=== PATIENT | male | born 1950 | race Caucasian/White ===

== ENCOUNTER → 2020-04-08 15:09 | Outpatient (BNVA) | payer MEDICARE, SELFPAY | PROVIDERS: PCP Internal Medicine; Referring Provider Internal Medicine; Visit Provider Internal Medicine Gastroenterology | DX: K80.20 Calculus of gallbladder without cholecystitis without obstruction (principal); K86.9 Disease of pancreas, unspecified | CPT/HCPCS: Q3014 ==

== ENCOUNTER 2020-06-01 14:07 | Outpatient (REF) | payer MEDICARE, SELFPAY ==
[2020-06-01 14:20] LABS: Glucose Urine UA NEG (NEG); Leukocyte Esterase Urine NEG (NEG); Nitrite Urine NEG (NEG); Specific Gravity - Urine 1.025 (1.005-1.025); Urine Blood NEG (NEG); Urine Ketones NEG (NEG); Urine Protein NEG (NEG-TRACE)
[2020-06-01 14:21] LABS: Appearance Urine CLEAR; Color Urine YELLOW
== END 2020-06-01 14:08 | disposition home or self-care (01) ==
LOC: HO.LNP 14:07
PROVIDERS: Visit Provider Physician Assistant
DX: N39.9 Disorder of urinary system, unspecified (principal)
CPT/HCPCS: 81003

== ENCOUNTER 2020-08-20 06:34 | Outpatient (REF) | payer MEDICARE, SELFPAY ==
[2020-08-20 11:45] LABS: Alanine Aminotransferase 20 U/L (0-40); Albumin Level 4.2 g/dL (3.5-5.0); Alkaline Phosphatase 102 U/L (39-117); Anion Gap 12 (12-20); Aspartate Amino Transferase 23 U/L (5-37); Bilirubin Total 0.7 mg/dL (0.0-1.0); Blood Urea Nitrogen 26 mg/dL (9-16); Calcium 9.5 mg/dL (8.4-10.2); Carbon Dioxide 29 mmol/L (22-29); Chloride 103 mmol/L (96-108); Cholesterol 190 mg/dL; Estimated Glomerular Filt Rate > 60; Glucose Fasting 93 mg/dL (60-99); HDL Cholesterol 54 mg/dL; LDL Cholesterol Calculated 119 mg/dl; Potassium 4.1 mmol/L (3.3-5.1); Sodium 140 mmol/L (135-145); Total Protein 6.7 g/dL (6.5-8.0); Triglycerides 86 mg/dL
[2020-08-20 12:09] LABS: Prostate Specific Antigen 0.35 ng/mL (<0.05-4.0)
== END 2020-08-20 06:35 | disposition home or self-care (01) ==
LOC: HO.HMGCLDS 06:34
PROVIDERS: PCP Internal Medicine; Visit Provider Internal Medicine
DX: E78.9 Disorder of lipoprotein metabolism, unspecified (principal); R97.20 Elevated prostate specific antigen [PSA]
CPT/HCPCS: 36415; 80053; 80061; 84153

== ENCOUNTER 2020-10-29 16:27 | Outpatient (REF) | payer MEDICARE, SELFPAY | END 2020-10-29 16:28 | disposition home or self-care (01) | LOC: HO.LNP 16:27 | PROVIDERS: Visit Provider Hospitalist | DX: R30.0 Dysuria (principal) | CPT/HCPCS: 87086; 87088; 87186 ==

== ENCOUNTER 2021-01-30 08:31 | Outpatient (REF) | payer MEDICARE, SELFPAY ==
[2021-01-30 11:26] LABS: Alanine Aminotransferase 13 U/L (0-40); Albumin Level 3.9 g/dL (3.5-5.0); Alkaline Phosphatase 94 U/L (39-117); Aspartate Amino Transferase 15 U/L (5-37); Bilirubin Direct 0.2 mg/dL (0.0-0.5); Bilirubin Total 0.5 mg/dL (0.0-1.0); Cholesterol 171 mg/dL; HDL Cholesterol 43 mg/dL; LDL Cholesterol Calculated 112 mg/dl; Total Protein 6.2 g/dL (6.5-8.0); Triglycerides 83 mg/dL
== END 2021-01-30 08:32 | disposition home or self-care (01) ==
LOC: HO.HMGCLDS 08:31
PROVIDERS: PCP Internal Medicine; Visit Provider Internal Medicine
DX: E78.9 Disorder of lipoprotein metabolism, unspecified (principal)
CPT/HCPCS: 36415; 80061; 80076

== ENCOUNTER 2021-03-03 15:24 | Outpatient (REF) | payer MEDICARE, SELFPAY ==
--- NOTE | ~2021-03-03 | CT_ITS ---
EXAMINATION: CT HEAD WITHOUT CONTRAST CLINICAL INFORMATION: Convulsions. COMPARISON: None. TECHNIQUE: Contiguous axial imaging was performed from the skull base to vertex without intravenous contrast. This CT examination was performed using dose optimization techniques as appropriate, variously including the following: * Automated exposure control * Adjustment of mA and/or kV according to patient size (this includes techniques or standardized protocols for targeted exams where dose is matched to indication/reason for exam; i.e. extremities or head) Use of iterative reconstruction technique DLP: 847 mGy-cm. FINDINGS: There is no evidence of acute intracranial hemorrhage or territorial infarction. No abnormal mass effect or midline shift is seen. Schmitt to white matter differentiation is well preserved. No extra-axial fluid collections are identified. No hydrocephalus. Proportional prominence of the ventricles and sulcal spaces is consistent with mild volume loss. Patchy periventricular and deep white matter hypoattenuation is consistent with mild small vessel ischemic changes. The osseous structures and soft tissues are normal. The mastoid air cells and visualized portions of the paranasal sinuses are well aerated. CT/CT head/brain wo con IMPRESSION: No acute intracranial pathology. Mild volume loss with small vessel ischemic change.
== END 2021-03-03 15:25 | disposition home or self-care (01) ==
LOC: HO.CT 15:24
PROVIDERS: Visit Provider Internal Medicine
DX: R56.9 Unspecified convulsions (principal)
CPT/HCPCS: 70450

== ENCOUNTER 2021-04-01 16:48 | Outpatient (REF) | payer MEDICARE, SELFPAY ==
[2021-04-01 16:52] LABS: Appearance Urine HAZY; Color Urine YELLOW; Glucose Urine UA NEG (NEG); Leukocyte Esterase Urine TRACE (NEG); Nitrite Urine NEG (NEG); PH 6.5 (5.0-8.0); Specific Gravity - Urine 1.025 (1.005-1.025); UACC Culture Trigger YES; Urine Blood 3+ (NEG); Urine Ketones NEG (NEG); Urine Protein 3+ MG/DL (NEG-TRACE)
[2021-04-01 17:02] LABS: Bacteria Urine 1+ /LPF; RBC Urine TNTC /HPF (0)
[2021-04-01 17:03] LABS: WBC Urine 0-2 /HPF (0-4)
== END 2021-04-01 16:49 | disposition home or self-care (01) ==
LOC: HO.LNP 16:48
PROVIDERS: Visit Provider Physician Assistant Medical
DX: R30.0 Dysuria (principal)
CPT/HCPCS: 81001; 87086

== ENCOUNTER 2021-07-31 08:32 | Outpatient (REF) | payer MEDICARE, SELFPAY ==
[2021-07-31 11:36] LABS: Alanine Aminotransferase 14 U/L (0-40); Alkaline Phosphatase 97 U/L (39-117); Anion Gap 11 (12-20); Aspartate Amino Transferase 16 U/L (5-37); Bilirubin Total 0.5 mg/dL (0.0-1.0); Blood Urea Nitrogen 19 mg/dL (9-16); Calcium 9.7 mg/dL (8.4-10.2); Carbon Dioxide 27 mmol/L (22-29); Chloride 104 mmol/L (96-108); Cholesterol 189 mg/dL; Estimated Glomerular Filt Rate > 60; Glucose Fasting 101 mg/dL (60-99); HDL Cholesterol 51 mg/dL; LDL Cholesterol Calculated 121 mg/dl; Potassium 4.4 mmol/L (3.3-5.1); Sodium 138 mmol/L (135-145); Total Protein 6.4 g/dL (6.5-8.0); Triglycerides 89 mg/dL
[2021-07-31 12:03] LABS: Prostate Specific Antigen < 0.05 ng/mL (<0.05-4.0)
== END 2021-07-31 08:33 | disposition home or self-care (01) ==
LOC: HO.HMGCLDS 08:32
PROVIDERS: Visit Provider Internal Medicine
DX: E78.9 Disorder of lipoprotein metabolism, unspecified (principal); R97.20 Elevated prostate specific antigen [PSA]; Z12.5 Encounter for screening for malignant neoplasm of prostate
CPT/HCPCS: 36415; 80053; 80061; 84153

== ENCOUNTER 2021-11-05 10:28 | Day surgery (SDC) | payer MEDICARE, SELFPAY ==
--- NOTE | 2021-11-04 08:51 | HO.ANESPROP2 ---
Documented by User: Dafne Billingsley NP 11/04/21 08:52 HPI - Anesthesia Eval Consult details Narrative: 71yo M for Colonoscopy PMFSH Active Problems Active Problems: All Active Problems (Updated 09/29/21 @ 09:31 by Chele Lawton MD) Urinary tract infection (Acute) Encounter for general adult medical examination with abnormal findings (Acute) Right leg swelling (Acute) Peripheral vascular disease of extremity (Acute) Hx of prostatic malignancy (Acute) New onset seizure (Acute) Dysuria (Acute) Urinary tract disease (Acute) Lipid disorder (Acute) Gall stones (Acute) Elevated PSA (Acute) Renal calculus, bilateral (Acute) Bilateral renal cysts (Acute) Pancreatic lesion (Acute) Past Medical History Medical History Bilateral renal cysts Elevated PSA Gall stones Lipid disorder Pancreatic lesion Renal calculus, bilateral Family History Family History Father Diabetes mellitus Mother No problems noted. Surgical History Surgical History History of inguinal hernia repair, bilateral Hx of colonoscopy Social History Social History Household Members: Spouse Housing: House Alcohol intake: current Alcohol intake frequency: a few times a month Alcohol type: wine Patient Tobacco Use Status: Former Tobacco user Tobacco use type: Cigarette Years Smoked: 11 years Are you DNR?: No Advance Directives: No Advance Directives Information Provided: Yes Nutrition Risks: No Nutritional Risk Current occupational status: employed Current occupation: [employer] Cognitive needs: No Hearing needs: No Vision needs: No Meds Allergies Allergy/AdvReac Type Severity Reaction Status Date / Time oxycodone [From OxyContin] Allergy Unknown Hallucinati Verified 10/19/21 09:12 ons Home Medications Medication Instructions Recorded Confirmed Last Taken Type cetirizine 10 mg tablet (Zyrtec) 5 mg PO DAILY PRN 03/03/20 08/10/21 Unknown History fluticasone furoate 50 inhalation 03/03/20 08/10/21 Unknown History mcg/actuation blister powder for inhalation zoggaqqbeiku-nhr-fsqyr acid-vit 1 tab PO DAILY 03/03/20 08/10/21 Unknown History K-lycop 400 mcg-20 mcg-370 mcg tablet (Men's 50 Plus Multivitamin) turmeric root extract 500 mg 500 mg PO DAILY 03/03/20 08/10/21 Unknown History capsule cholecalciferol (vitamin D3) 25 25 mcg PO DAILY 08/28/20 08/10/21 Unknown History mcg (1,000 unit) capsule Exam Exam Date and Time: November 04, 2021 0851 Pertinent Lab Results Pertinent Lab Results: Laboratory Tests 07/31/21 08:40 Sodium 138 Potassium 4.4 Chloride 104 Carbon Dioxide 27 BUN 19 H Creatinine 1.09 Assessment and Plan Assessment Anesthesia Assessment: Chart Reviewed Documented by User: Nadeem Briscoe MD 11/05/21 10:53 REPLACED BY [facility] Past Medical History Medical History Bilateral renal cysts Elevated PSA Gall stones Lipid disorder Pancreatic lesion Renal calculus, bilateral Family History Family History Father Diabetes mellitus Mother No problems noted. Family history of problems with anesthesia: No Surgical History Surgical History History of inguinal hernia repair, bilateral Hx of colonoscopy History of Problems with Anesthesia: No Social History Social History Household Members: Spouse Housing: House Alcohol intake: current Alcohol intake frequency: a few times a month Alcohol type: wine Patient Tobacco Use Status: Former Tobacco user Tobacco use type: Cigarette Years Smoked: 11 years Are you DNR?: No Advance Directives: No Advance Directives Information Provided: Yes Nutrition Risks: No Nutritional Risk Current occupational status: employed Current occupation: [employer] Cognitive needs: No Hearing needs: No Vision needs: No Meds Allergies Allergy/AdvReac Type Severity Reaction Status Date / Time oxycodone [From OxyContin] Allergy Unknown Hallucinati Verified 10/19/21 09:12 ons Home Medications Medication Instructions Recorded Confirmed Last Taken Type cetirizine 10 mg tablet (Zyrtec) 5 mg PO DAILY PRN 03/03/20 08/10/21 Unknown History fluticasone furoate 50 inhalation 03/03/20 08/10/21 Unknown History mcg/actuation blister powder for inhalation cisnadjnbbic-qlk-anmqs acid-vit 1 tab PO DAILY 03/03/20 08/10/21 Unknown History K-lycop 400 mcg-20 mcg-370 mcg tablet (Men's 50 Plus Multivitamin) turmeric root extract 500 mg 500 mg PO DAILY 03/03/20 08/10/21 Unknown History capsule cholecalciferol (vitamin D3) 25 25 mcg PO DAILY 08/28/20 08/10/21 Unknown History mcg (1,000 unit) capsule Exam Airway Mallampati Class: II TM Dist: >3cm Neck ROM: Full Assessment and Plan Assessment Anesthesia Assessment: Anesthesia Plan Discussed Final Anesthetic Review Family History of Problems with Anesthesia: No History of Problems with Anesthesia: No NPO: Yes ASA Class: II Final Preanesthetic Review: No Changes in Pt Med Stat, Meds/Allgs Chart Reviewed, Consent Obtained/Reviewed and Anes Risks/Benef Reviewed Patient Risk: Low Procedure Risk: Low Anesthetic Plan Anesthetic Plan: MAC: Disposition: Standard PACU
[2021-11-05] VITALS (7 sets, daily range): BP systolic 118–154; BP diastolic 55–79; PULSE 48–59; RESP 18; TEMP 36.4–36.6; O2SAT 97–100; BMI 27.6
[2021-11-05] MEDS: Lactated Ringers 1,000 ML 100 ML IVCONT (11:08)
--- NOTE | 2021-11-05 12:37 | PM.OP ---
Brief Operative Note Date of Service: 11/05/21 Pre-op diagnosis: Rectal bleeding Post-op diagnosis: other (Radiation-telangiectasias in rectum, Colon polyp) Procedure: Colonoscopy to the cecum with cold snare polypectomy Surgeon: Naveed Arce Anesthesia: MAC Was an Irrigator used for this Procedure?: No Estimated blood loss (mL): 2.0 Pathology: other (A. Colon polyp at 40cm) Condition: stable Disposition: PACU
--- NOTE | 2021-11-05 13:37 | OP_ITS ---
SURGEON: Naveed Arce MD INDICATIONS: The patient presents for evaluation of personal history of a tubular adenoma of the colon and hematochezia. Full consent has been obtained from him for this, including risks of bleeding and perforation. PREOPERATIVE DIAGNOSIS: POSTOPERATIVE DIAGNOSIS: PROCEDURE PERFORMED: Colonoscopy to the cecum with cold snare polypectomy. ESTIMATED BLOOD LOSS: COMPLICATIONS: ANESTHESIA: Monitored anesthesia care. ASSISTANTS: SPECIMENS: PREOPERATIVE DIAGNOSES: Rectal bleeding and personal history of a tubular adenoma of the colon. 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 DESCRIPTION OF PROCEDURE: The patient was placed in the left lateral decubitus position. The digital rectal exam revealed no abnormalities. The Olympus video pediatric colonoscope was entered into the rectum and advanced easily to the cecum. Once in the cecum, I did identify normal-appearing cecal pouch with appendiceal orifice and a normal-appearing ileocecal valve. The entire cecum and ileocecal valve appeared normal. There was transillumination of light deep in the right lower quadrant. The scope was slowly withdrawn assessing all mucosal surfaces carefully. Preparation was excellent. At 40 cm was an approximately 6 mm polyp, which was removed by cold snare polypectomy and recovered by suction. The polypectomy site appeared clean, without any sign of residual polyp nor any significant bleeding. His anastomosis from his previous diverticulitis surgery appeared normal at approximately 10-12 cm. There were some scattered diverticula proximal to this. I did not visualize any sign of colitis nor angiodysplasia. In the rectum were multiple telangiectasias consistent with previous radiation treatments, although none were bleeding. I could not retroflex due to some poor distensibility of the rectum probably in relation to his previous surgery as well as maybe the radiation treatments itself. However, I did get a good look in the forward viewing position and no polyps or other abnormalities were seen besides the telangiectasias and some hemorrhoids. The scope was withdrawn from the patient. He tolerated the procedure well and was returned to the recovery area in stable condition. IMPRESSION: 1. Colon polyp. 2. 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 3. Mild diverticulosis proximal to the anastomosis. 4. Internal hemorrhoids. PLAN: The results of the pathology will be checked. At this point, he reports his bleeding is quite minimal and infrequent. As such, this will be observed. If he begins having more bleeding from the rectal telangiectasias, then we would consider things such as treatment with argon plasma coagulation or topical treatment with something such as mesalamine or hydrocortisone. If things remain stable he will otherwise see me on a p.r.n. basis. He should theoretically have another colonoscopy in 5 years. He was also given instructions to follow up with me in 1 year in regard to his known pancreatic cyst and need for follow up imaging. This has all been discussed with his . MD BOB Patel/CEE / [phone] MTDD
== END 2021-11-05 14:25 | disposition home or self-care (01) ==
PROVIDERS: PCP Internal Medicine; Visit Provider Internal Medicine
PROC: 0DJD8ZZ Inspection of Lower Intestinal Tract, Via Natural or Artificial Opening Endoscopic (ICD-10-PCS; CPT 45378; principal; 2021-11-05 11:40)
DX: K62.5 Hemorrhage of anus and rectum (principal); Z86.010 Personal history of colon polyps; D12.5 Benign neoplasm of sigmoid colon; K57.30 Diverticulosis of large intestine without perforation or abscess without bleeding; Z87.19 Personal history of other diseases of the digestive system; K64.8 Other hemorrhoids; K86.2 Cyst of pancreas; K80.20 Calculus of gallbladder without cholecystitis without obstruction; K62.7 Radiation proctitis; Y84.2 Radiological procedure and radiotherapy as the cause of abnormal reaction of the patient, or of later complication, without mention of misadventure at the time of the procedure; Z92.3 Personal history of irradiation; Z98.0 Intestinal bypass and anastomosis status; Z85.46 Personal history of malignant neoplasm of prostate; E78.5 Hyperlipidemia, unspecified; Z87.891 Personal history of nicotine dependence
CPT/HCPCS: 45385; 88305

== ENCOUNTER → 2021-11-09 08:59 | Outpatient (BNVA) | payer MEDICARE, SELFPAY | PROVIDERS: PCP Internal Medicine; Visit Provider Surgery Vascular Surgery | DX: I83.11 Varicose veins of right lower extremity with inflammation (principal) | CPT/HCPCS: 99202 ==

== ENCOUNTER 2022-01-05 10:32 | Outpatient (REF) | payer MEDICARE, SELFPAY ==
--- NOTE | ~2022-01-05 | US_ITS ---
EXAMINATION: US LOWER EXTREMITY VENOUS (REFLUX EXAM), BILATERAL CLINICAL INDICATION: This is a 71-year-old male with venous insufficiency. Varicose veins. Varicose veins of the right lower extremity with inflammation. COMPARISON: None. TECHNIQUE: Color flow triplex imaging and compression Doppler was performed to evaluate both the deep and the superficial systems bilaterally. To evaluate the superficial system, the examination was performed in the upright position. Color-flow Doppler ultrasound and compression ultrasound were utilized. In addition, maneuvers were utilized to demonstrate reflux. FINDINGS: 1. DEEP VENOUS ULTRASOUND OF THE RIGHT LOWER EXTREMITY: Common Femoral Vein: Compressible, normal respiratory variation and augmented flow. Femoral vein: Compressible, normal color flow and augmentation. Popliteal Vein: Compressible, normal augmentation. Deep Reflux: There is no evidence of reflux in the deep system in either the common femoral vein or the popliteal vein. There is no evidence of a Starkey's cyst. 2. SUPERFICIAL ULTRASOUND WITH DOPPLER OF RIGHT LOWER EXTREMITY: GREAT SAPHENOUS VEIN: Saphenofemoral Junction: 0.7 cm. There is no reflux. Mid Thigh: 0.3 cm. There is no reflux. Above Knee: 0.2 cm. The reflux time is 1736 ms. Below Knee: 0.3 cm. There is no reflux. Mid Calf: 0.2 cm. There is no reflux. Ankle: 0.2 cm. There is no reflux. GSV REFLUX: There is isolated reflux surrounding the knee but not at the saphenofemoral junction DUPLICATED GREAT SAPHENOUS VEIN: There is a 0.3 cm duplicated lateral great saphenous vein without reflux. SMALL SAPHENOUS VEIN: Proximal: 0.2 cm Distal: 0.2 cm SSV REFLUX: No evidence of reflux. VEIN OF GIACOMINI: None Imaged. PERFORATORS: There are 0.2 cm proximal calf perforators without reflux. VARICOSITIES: There are 0.6 cm proximal thigh varicose veins without reflux. There are 0.2 cm varicose veins at the knee and the proximal calf, respectively, with greater than 2 seconds of reflux. 3. DEEP VENOUS ULTRASOUND OF THE LEFT LOWER EXTREMITY: Common Femoral Vein: Compressible, normal respiratory variation and augmented flow. Femoral Vein: Compressible, normal color flow and augmentation. Popliteal Vein: Compressible, normal augmentation. Deep Reflux: There is no evidence of reflux in the deep system in either the common femoral vein or the popliteal vein. There is no evidence of a Starkey's cyst. 4. SUPERFICIAL ULTRASOUND WITH DOPPLER OF LEFT LOWER EXTREMITY: GREAT SAPHENOUS VEIN: Saphenofemoral Junction: 0.7 cm. There is no reflux. Mid Thigh: 0.3 cm. There is no reflux. Above Knee: 0.3 cm. There is no reflux. Below Knee: 0.2 cm. The reflux time is 604 ms. Mid Calf: 0.2 cm. There is no reflux. Ankle: 0.2 cm. There is no reflux. GSV REFLUX: There is isolated reflux below the knee. DUPLICATED GREAT SAPHENOUS VEIN: There is a 0.4 cm duplicated medial great saphenous vein without reflux. SMALL SAPHENOUS VEIN: Proximal: 0.2 cm Distal: 0.2 cm SSV REFLUX: No evidence of reflux. VEIN OF GIACOMINI: None Imaged. 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 VARICOSITIES: None Imaged US/US venous duplex LE BI IMPRESSION: 1. There is a patent right great saphenous vein without evidence of reflux at the saphenofemoral junction. Isolated reflux is seen near the knee. 2. There is a patent right small saphenous vein without evidence of reflux. 3. There are varicose veins at the right knee in the proximal calf measuring 0.2 cm with greater than 2 seconds of reflux. 4. There is a patent left great saphenous vein without evidence of saphenous femoral junction reflux. 5. There is a patent left small saphenous vein without evidence of reflux at the junction. 6. No left-sided varicose veins are seen.
== END 2022-01-05 10:33 | disposition home or self-care (01) ==
LOC: HO.US 10:32
PROVIDERS: Visit Provider Surgery Vascular Surgery
DX: I83.11 Varicose veins of right lower extremity with inflammation (principal)
CPT/HCPCS: 93970

== ENCOUNTER → 2022-01-11 09:01 | Outpatient (BNVA) | payer MEDICARE, SELFPAY | PROVIDERS: PCP Internal Medicine; Visit Provider Surgery Vascular Surgery | DX: I83.11 Varicose veins of right lower extremity with inflammation (principal) | CPT/HCPCS: 99212 ==

== ENCOUNTER 2022-01-29 08:24 | Outpatient (REF) | payer MEDICARE, SELFPAY ==
[2022-01-29 12:12] LABS: Alanine Aminotransferase 13 U/L (0-40); Albumin Level 4.2 g/dL (3.5-5.0); Alkaline Phosphatase 110 U/L (39-117); Anion Gap 15 (12-20); Aspartate Amino Transferase 17 U/L (5-37); Bilirubin Total 0.5 mg/dL (0.0-1.0); Blood Urea Nitrogen 20 mg/dL (9-16); Calcium 9.4 mg/dL (8.4-10.2); Carbon Dioxide 26 mmol/L (22-29); Chloride 103 mmol/L (96-108); Cholesterol 174 mg/dL; Estimated Glomerular Filt Rate > 60; Glucose Fasting 98 mg/dL (60-99); HDL Cholesterol 48 mg/dL; LDL Cholesterol Calculated 112 mg/dl; Potassium 4.4 mmol/L (3.3-5.1); Sodium 140 mmol/L (135-145); Total Protein 6.6 g/dL (6.5-8.0); Triglycerides 72 mg/dL
== END 2022-01-29 08:25 | disposition home or self-care (01) ==
LOC: HO.HMGCLDS 08:24
PROVIDERS: PCP Internal Medicine; Visit Provider Internal Medicine
DX: E78.9 Disorder of lipoprotein metabolism, unspecified (principal)
CPT/HCPCS: 36415; 80053; 80061

== ENCOUNTER 2022-02-22 15:39 | Emergency (ER) | payer MEDICARE, SELFPAY ==
[2022-02-22 18:33] VITALS: BP 164/73; PULSE 74; RESP 18; TEMP 37.1; O2SAT 95; BMI 27.3
== END 2022-02-22 21:10 | disposition left against medical advice (07) ==
PROVIDERS: Emergency Provider Emergency Medicine; PCP Internal Medicine
DX: R10.30 Lower abdominal pain, unspecified (principal)
CPT/HCPCS: 99281; 99282

== ENCOUNTER 2022-05-14 13:37 | Outpatient (REF) | payer MEDICARE, SELFPAY ==
[2022-05-14 14:26] LABS: Influenza A PCR NEGATIVE (Negative); Influenza B PCR NEGATIVE (Negative); Resp Syncy Virus RNA Qual PCR NEGATIVE (Negative); SARS COV2 PCR INHOUSE NEGATIVE (Negative)
== END 2022-05-14 13:38 | disposition home or self-care (01) ==
LOC: HO.LNP 13:37
PROVIDERS: Visit Provider Physician Assistant Medical
DX: Z20.822 Contact with and (suspected) exposure to COVID-19 (principal); R05.9 Cough, unspecified; J02.9 Acute pharyngitis, unspecified
CPT/HCPCS: 0241U; 87070

== ENCOUNTER → 2022-06-10 08:29 | Outpatient (BNVA) | payer MEDICARE, SELFPAY | PROVIDERS: PCP Internal Medicine; Visit Provider Surgery Vascular Surgery | DX: Z53.09 Procedure and treatment not carried out because of other contraindication (principal); I83.11 Varicose veins of right lower extremity with inflammation | CPT/HCPCS: 36475 ==

== ENCOUNTER 2022-07-30 08:10 | Outpatient (REF) | payer MEDICARE, SELFPAY ==
[2022-07-30 12:37] LABS: Estimated Average Glucose 105 mg/dL; Hemoglobin A1c % 5.3 %
[2022-07-30 12:44] LABS: Alanine Aminotransferase 14 U/L (0-40); Albumin Level 4.2 g/dL (3.5-5.0); Alkaline Phosphatase 105 U/L (39-117); Anion Gap 12 (12-20); Aspartate Amino Transferase 18 U/L (5-37); Bilirubin Total 0.7 mg/dL (0.0-1.0); Blood Urea Nitrogen 21 mg/dL (9-16); Calcium 9.6 mg/dL (8.4-10.2); Carbon Dioxide 28 mmol/L (22-29); Chloride 107 mmol/L (96-108); Estimated Glomerular Filt Rate > 60; Glucose Fasting 98 mg/dL (60-99); Lipase 24 U/L (8-78); Sodium 142 mmol/L (135-145); Total Protein 6.5 g/dL (6.5-8.0)
== END 2022-07-30 08:11 | disposition home or self-care (01) ==
LOC: HO.HMGCLDS 08:10
PROVIDERS: PCP Internal Medicine; Visit Provider Internal Medicine
DX: I73.9 Peripheral vascular disease, unspecified (principal); E78.9 Disorder of lipoprotein metabolism, unspecified; Z83.3 Family history of diabetes mellitus
CPT/HCPCS: 36415; 80053; 83036; 83690

== ENCOUNTER 2023-01-09 14:48 | Outpatient (AMB) | payer MEDICARE, SELFPAY ==
[2023-01-09 15:06] VITALS: BP 130/76; PULSE 50; TEMP 36.9; O2SAT 98; BMI 29.0
--- NOTE | 2023-01-09 15:06 | MHC.OFFWIV ---
Intake Vital Signs 01/09/23 15:06 Height 5 ft 8 in Weight 191 lb BMI 29.0 BP 130/76 Blood Pressure Location Rt brachial Position Sitting Pulse 50 Pulse Source Pulse Oximeter Temp 98.4 F Temp Source Oral Pulse Oximetry (%) 98 Intake Visit Reasons: EP Pain RT wrist Intake Note: patient said just woke up with his wrist in pain. Pain coming from right thumb going up his arm. Patient Tobacco Use Status: Former Tobacco user Allergies oxycodone [From OxyContin] Allergy (Unknown, Verified 01/09/23 15:50) Hallucinations Medication List - Last Reconciled 01/09/23 by Chele Lawton MD atorvastatin 20 mg PO DAILY 90 days calcium carbonate (Antacid (calcium carbonate)) 200 mg PO DAILY cetirizine (Zyrtec) 5 mg PO DAILY PRN coenzyme Q10 (Ultra CoQ10) 75 mg PO DAILY cranberry extract 250 mg PO DAILY fluticasone furoate 50 mcg/actuation inhalation glucosamine-chondroitin 500-400 mg 1 cap PO DAILY magnesium 250 mg PO DAILY mnygyhxg-miy-wyccr-vit K-lycop 400-20-370 mcg (Men's 50 Plus Multivitamin) 1 tab PO DAILY nitrofurantoin monohyd/m-cryst 100 mg 1 cap PO BID tamsulosin 0.4 mg PO DAILY 90 days Do you need a note to return to daycare/school/sports/work: No HPI EP Pain RT wrist HPI Details 72-year-old male presents to the office for a sick visit. He is complaining of pain in the right wrist for the past 3 days. Pain is around the right thumb and on the dorsum of the wrist. Does not recall any fall or injury. Patient is an avid golfer. [facility] Medical History Bilateral renal cysts Elevated PSA Gall stones Lipid disorder Pancreatic lesion Renal calculus, bilateral Surgical History History of inguinal hernia repair, bilateral Hx of colonoscopy Family History Father Diabetes mellitus Mother No problems noted. Social History Household Members: Spouse Housing: House Alcohol intake: current Alcohol intake frequency: a few times a month Alcohol type: wine Patient Tobacco Use Status: Former Tobacco user Tobacco use type: Cigarette Years Smoked: 11 years service: No Current occupational status: employed Current occupation: [employer] Current occupational exposures/hazards: Yes Cognitive needs: No Hearing needs: No Vision needs: No Physical Exam Vital Signs: Last Vital Signs Temp 98.4 F 01/09/23 15:06 Pulse 50 01/09/23 15:06 BP 130/76 01/09/23 15:06 Pulse Ox 98 01/09/23 15:06 BMI result Body Mass Index 29.0 Extrem Other: Right hand: Minimal tenderness over the dorsum of the wrist. Full flexion and extension. Assessment & Plan Assessment & Plan (1) Sprain of wrist, right: Code(s): S63.501A - Unspecified sprain of right wrist, initial encounter Qualifiers: Encounter type: initial encounter Qualified Code(s): S63.501A - Unspecified sprain of right wrist, initial encounter Plan: X-ray images were personally reviewed by me. Splint provided. Meloxicam called in. If symptoms not better to follow-up here. Orders: Orders XR wrist RT min 3V Today S63.501A - Unspecified sprain of right wrist, initial encounter Coding Level of Care Code Est Pt Level 4 (81780) Diagnoses Sprain of right wrist, initial encounter S63.501A Encounter type: initial encounter
== END 2023-01-09 16:26 | disposition home or self-care (01) ==
PROVIDERS: PCP Internal Medicine; Visit Provider Internal Medicine
DX: S63.501A Unspecified sprain of right wrist, initial encounter (principal)
CPT/HCPCS: 99214

== ENCOUNTER 2023-01-09 15:47 | Outpatient (REF) | payer MEDICARE, SELFPAY ==
--- NOTE | ~2023-01-09 | XR_ITS ---
EXAMINATION: XR WRIST, RIGHT CLINICAL INFORMATION: Sprain COMPARISON: None available. TECHNIQUE: 4 views of the right wrist. FINDINGS: The bones and soft tissues are normal. No fracture. Alignment is anatomic with normal joint spaces. No erosions or abnormal soft tissue calcifications. XR/XR wrist RT min 3V IMPRESSION: Normal right wrist.
== END 2023-01-09 15:48 | disposition home or self-care (01) ==
LOC: HO.HMGCX 15:47
PROVIDERS: PCP Internal Medicine; Visit Provider Internal Medicine
DX: S63.501A Unspecified sprain of right wrist, initial encounter (principal); X58.XXXA Exposure to other specified factors, initial encounter; Y93.9 Activity, unspecified; Y92.9 Unspecified place or not applicable; Y99.9 Unspecified external cause status
CPT/HCPCS: 73110

== ENCOUNTER 2023-01-28 08:41 | Outpatient (REF) | payer MEDICARE, SELFPAY ==
[2023-01-28 11:51] LABS: Alanine Aminotransferase 13 U/L (0-40); Albumin Level 4.1 g/dL (3.5-5.0); Alkaline Phosphatase 96 U/L (39-117); Anion Gap 13 (12-20); Aspartate Amino Transferase 19 U/L (5-37); Bilirubin Total 0.5 mg/dL (0.0-1.0); Blood Urea Nitrogen 23 mg/dL (9-16); Calcium 9.8 mg/dL (8.4-10.2); Carbon Dioxide 27 mmol/L (22-29); Chloride 105 mmol/L (96-108); Cholesterol 184 mg/dL (<200); Estimated Glomerular Filt Rate > 60; Glucose Fasting 93 mg/dL (60-99); HDL Cholesterol 52 mg/dL (>40); LDL Cholesterol Calculated 112 mg/dL (<100); Potassium 4.4 mmol/L (3.3-5.1); Sodium 141 mmol/L (135-145); Total Protein 6.7 g/dL (6.5-8.0); Triglycerides 104 mg/dL (<150)
== END 2023-01-28 08:42 | disposition home or self-care (01) ==
LOC: HO.HMGCLDS 08:41
PROVIDERS: PCP Internal Medicine; Visit Provider Internal Medicine
DX: R73.01 Impaired fasting glucose (principal); E78.9 Disorder of lipoprotein metabolism, unspecified
CPT/HCPCS: 36415; 80053; 80061

== ENCOUNTER 2023-02-08 08:56 | Outpatient (AMB) | payer MEDICARE, SELFPAY ==
[2023-02-08 08:59] VITALS: BP 118/60; PULSE 55; O2SAT 97; BMI 28.7
--- NOTE | 2023-02-08 08:59 | MHC.PC.OV ---
Vital Signs 02/08/23 08:59 Height 5 ft 8 in Weight 189 lb BMI 28.7 BP 118/60 Blood Pressure Location Rt brachial Position Sitting Pulse 55 Pulse Source Pulse Oximeter Pulse Oximetry (%) 97 Oxygen Delivery Method Room Air Intake Visit Reasons: Annual PE Allergies oxycodone [From OxyContin] Allergy (Unknown, Verified 02/08/23 09:01) Hallucinations Medication List - Last Reconciled 02/08/23 by Sanjay Cole MD atorvastatin 20 mg PO DAILY 90 days calcium carbonate (Antacid (calcium carbonate)) 200 mg PO DAILY cetirizine (Zyrtec) 5 mg PO DAILY PRN coenzyme Q10 (Ultra CoQ10) 75 mg PO DAILY cranberry extract 250 mg PO DAILY fluticasone furoate 50 mcg/actuation inhalation glucosamine-chondroitin 500-400 mg 1 cap PO DAILY magnesium 250 mg PO DAILY meloxicam 15 mg PO DAILY fnimmfyc-gym-jerod-vit K-lycop 400-20-370 mcg (Men's 50 Plus Multivitamin) 1 tab PO DAILY nitrofurantoin monohyd/m-cryst 100 mg 1 cap PO BID tamsulosin 0.4 mg PO DAILY 90 days Tobacco use date assessed: 02/08/23 Fall risk assessment: No Falls in past year Last assessed Fall Risk: 02/08/23 Dental Screening Dental Screen Date: 02/08/23 Did you have a dental visit in the last 12 months?: Yes Did you have a dental problem in the last 6 months where you did not have access to dental care?: No Was dental information given to patient?: Patient has dentist HPI Annual PE HPI Details Patient is a 71-year-old male came in today for physical examination. Patient had colonoscopy last year through Dr. Grier Patient have a history of prostatic cancer and is under care off [facility] Urologist Dr. Guerrero He recently had cystoscopy done which was fine as well patient He does have frequency of urination which is chronic however there is no urine incontinence Only medication through our office is lovastatin 20 mg for lipid control. Labs done recently this month reviewed with the patient New set of lab order placed to be done in 6 months Patient has been having swelling of his right leg, on examination today he has 2+ edema to whaley. He has seen vascular specialist but procedure could not be done as the provider could not find his way in. Currently patient is wearing compression stocking which is controlling his symptoms. Swelling is located only in the right leg and is minimal today due to compression stocking Follow-up 6 month physical exam 1 year [facility] Medical History Lipid disorder Gall stones Elevated PSA Renal calculus, bilateral Bilateral renal cysts Pancreatic lesion Surgical History Hx of colonoscopy History of inguinal hernia repair, bilateral Family History Father Diabetes mellitus Mother No problems noted. Social History Household Members: Spouse Housing: House Alcohol intake: current Alcohol intake frequency: a few times a month Alcohol type: wine Patient Tobacco Use Status: Former Tobacco user Tobacco use type: Cigarette Years Smoked: 11 years e-Cigarette/Vaping Use: Never Used service: No Current occupational status: employed Current occupation: [employer] Current occupational exposures/hazards: Yes Cognitive needs: No Hearing needs: No Vision needs: No Questionnaire PHQ-9 Over the last 2 weeks, how often have you been bothered by any of the following problems? 1. Little interest or pleasure in doing things: not at all 2. Feeling down, depressed, or hopeless: not at all 3. Trouble falling or staying asleep, or sleeping too much: not at all 4. Feeling tired or having little energy: not at all 5. Poor appetite or overeating: not at all 6. Feeling bad about yourself - or that you are a failure or have let yourself or your family down: not at all 7. Trouble concentrating on things, such as reading the newspaper or watching television: not at all 8. Moving or speaking so slowly that other people could have noticed. Or the opposite - being so fidgety or restless that you have been moving around a lot more than usual: not at all 9. Thoughts that you would be better off or of hurting yourself in some way: not at all Total score: 0 Depression Screening Interpretation: Negative Depression Screening Done: Yes 79330 - PHQ-9 Billing: Yes Source: Developed by Drs. Naveed L. SweetieTemitope rodriguez Kurt Kroenke and colleagues, with an educational lisa from [employer]. Thrive Questionnaire Date Thrive assessed: 02/08/23 I am a: Patient What is your living situation today?: I have a steady place to live Within the past 12 months, did the food you bought not last and you didn't have the money to get more?: Never true Within the past 12 months, did you worry whether your food would run out before you got money to buy more?: Never true Do you have trouble paying for medicines?: No Do you have trouble getting transportation to medical appointments?: No Do you have trouble paying your heating and electricity bill?: No Do you have trouble taking care of your child, family member or friend?: No Do you have trouble with day-to-day activities such as bathing, preparing meals, shopping, managing finances, etc.?: No Are you currently unemployed and looking for a job?: No Are you interested in more education?: No KARINA-7 AMB Questionnaire KARINA-7 Date KARINA - 7 assessed: 02/08/23 Feeling nervous, anxious, or on edge: 0 = Not at all Not being able to stop or control worryin = Not at all Worrying too much about different things: 0 = Not at all Trouble relaxin = Not at all Being so restless that it is hard to sit still: 0 = Not at all Becoming easily annoyed or irritable: 0 = Not at all Feeling afraid as if something awful might happen: 0 = Not at all Total KARINA-7 score (0-4 normal; 5-9 mild; 10-14 moderate; 15-21 severe): 0 Source: Developed by Drs. Naveed Pitt, Ham Vallejo and colleagues, with an educational lisa from [employer]. Review of Systems Const Denies chills, Denies fever(s) and Denies headache(s) Eyes Denies blurry vision ENT Denies headache(s), Denies nasal discharge, Denies nasal obstruction, Denies odynophagia and Denies sinus pain Card Denies chest pain at rest and Denies chest pain with activity Resp Denies cough and Denies hemoptysis GI Denies diarrhea, Denies odynophagia, Denies vomiting and Denies hematemesis Reports as per HPI Musc Denies abnormal gait Skin/Breast Reports as per HPI Neuro Denies Neuro-related abnormal movements, Denies Abnormal speech present, Denies abnormal gait, Denies headache(s) and Denies Sensory deficit (Neuro) Psych Denies mood swings and Denies paranoia Endo Reports as per HPI Hair/Lymph Reports as per HPI Aller/Immun Reports as per HPI Physical exam (Primary Care) Vital Signs: Last Vital Signs Pulse 55 02/08/23 08:59 BP 118/60 02/08/23 08:59 Pulse Ox 97 02/08/23 08:59 Oxygen Delivery Method Room Air 02/08/23 08:59 BMI result Body Mass Index 28.7 Tobacco/Smoking Status: Tobacco use Status Tobacco use date assessed 02/08/23 02/08/23 09:03 Patient Tobacco Use Status Former Tobacco user 02/08/23 09:03 Tobacco use type Cigarette 02/08/23 09:03 e-Cigarette/Vaping Use Never Used 02/08/23 09:03 PHQ-9: PHQ-9 Score PHQ-9: Total score 0 02/08/23 09:41 Depression Screening Interpretation: Negative Thrive Assessment: Date of Thrive Assessment Date Thrive assessed 02/08/23 02/08/23 09:41 Const General: cooperative, comfortable and no acute distress Orientation/consciousness: patient oriented x3 HENMT Head: Yes normocephalic and Yes atraumatic Eyes General: appearance normal, both eyes and all related structures Pupils: Equal, round and reactive pupils present EOM: EOMs intact bilaterally Neck Neck: Yes supple and No lymphadenopathy Thyroid: Thyroid normal Lymphatic: no lymphadenopathy noted Chest Breast/axilla palpation: normal palpation of the breasts Resp Effort & Inspection: normal respiratory effort and able to speak in complete sentences Auscultation: clear to auscultation bilaterally Cardio Heart sounds: S1 normal heart sound present and S2 normal heart sound present GI Palpation (GI): Soft to palpation and nontender Auscultation: normal bowel sounds General: Yes no CVA tenderness Back/Spine/Pelvis Back: no CVA tenderness Skin General skin exam: elasticity normal and turgor normal Neuro General: patient oriented x3 and gait normal Cranial nerves: Yes Equal, round and reactive pupils present Speech: No Abnormal speech present Sensory Exam: No Sensory deficit (Neuro) Coordination: tandem gait normal and Romberg test negative Extrem General: Yes normal exam except as noted and No edema Assessment and Plan Assessment & Plan (1) Encounter for general adult medical examination with abnormal findings: Code(s): Z00.01 - Encounter for general adult medical examination with abnormal findings (2) Peripheral vascular disease of extremity: Code(s): I73.9 - Peripheral vascular disease, unspecified (3) Hx of prostatic malignancy: Code(s): Z85.46 - Personal history of malignant neoplasm of prostate (4) Lipid disorder: Code(s): E78.9 - Disorder of lipoprotein metabolism, unspecified (5) Impaired fasting blood sugar: Code(s): R73.01 - Impaired fasting glucose Plan Patient is a 71-year-old male came in today for physical examination. Patient had colonoscopy last year through Dr. Grier Patient have a history of prostatic cancer and is under care off [facility] Urologist Dr. Guerrero He recently had cystoscopy done which was fine as well patient He does have frequency of urination which is chronic however there is no urine incontinence Only medication through our office is lovastatin 20 mg for lipid control. Labs done recently this month reviewed with the patient New set of lab order placed to be done in 6 months Patient has been having swelling of his right leg, on examination today he has 2+ edema to whaley. He has seen vascular specialist but procedure could not be done as the provider could not find his way in. Currently patient is wearing compression stocking which is controlling his symptoms. Swelling is located only in the right leg and is minimal today due to compression stocking Follow-up 6 month physical exam 1 year Orders: Orders Comprehensive [place]. Panel Fast 6 Months E78.9 - Disorder of lipoprotein metabolism, unspecified, R73.01 - Impaired fasting glucose Lipid Panel 6 Months E78.9 - Disorder of lipoprotein metabolism, unspecified, R73.01 - Impaired fasting glucose Complete Blood Count Auto Diff 6 Months E78.9 - Disorder of lipoprotein metabolism, unspecified, R73.01 - Impaired fasting glucose Coding Level of Care Code Est Pt Prev Care >65y(19121) Diagnoses Encounter for general adult medical examination with abnormal findings Z00.01 Peripheral vascular disease of extremity I73.9 Hx of prostatic malignancy Z85.46 Lipid disorder E78.9 Impaired fasting blood sugar R73.01
== END 2023-02-08 09:30 | disposition home or self-care (01) ==
PROVIDERS: Visit Provider Internal Medicine
DX: Z00.01 Encounter for general adult medical examination with abnormal findings (principal); I73.9 Peripheral vascular disease, unspecified; Z85.46 Personal history of malignant neoplasm of prostate; E78.9 Disorder of lipoprotein metabolism, unspecified; R73.01 Impaired fasting glucose
CPT/HCPCS: 99397

== ENCOUNTER 2023-07-29 07:58 | Outpatient (REF) | payer MEDICARE, SELFPAY ==
[2023-07-29 11:10] LABS: MANUAL DIFF FLAG NO
[2023-07-29 11:13] LABS: Basophils Percent Auto 0.6 % (0-2); Eosinophils Absolute Auto 0.3 X10*3/uL (0.0-0.4); Eosinophils Percent Auto 9.5 % (0-4); Hematocrit 41.2 % (42.0-52.0); Hemoglobin 13.7 g/dl (14.0-18.0); Imm Gran Abs Auto 0.02 X10*3/uL (0.00-0.03); Imm Gran Pct Auto 0.6 % (0.0-0.4); Lymphocytes Absolute Auto 0.8 X10*3/uL (1.2-4.9); Lymphocytes Percent Auto 22.2 % (20-40); Mean Corpuscular HGB Conc 33.3 g/dl (31.0-36.0); Mean Corpuscular Hemoglobin 29.1 pg (27.0-33.0); Mean Corpuscular Volume 87.7 fL (80.0-98.0); Mean Platelet Volume 9.5 fL (9.4-12.4); Monocytes Absolute Auto 0.4 X10*3/uL (0.1-1.2); Monocytes Percent Auto 10.1 % (2-11); Platelet Count 206 X10*3/uL (160-400); Red Cell Distribution Width 12.9 % (11.0-16.0); White Blood Count 3.5 X10*3/uL (4.8-10.8)
[2023-07-29 11:30] LABS: Alanine Aminotransferase 17 U/L (0-40); Alkaline Phosphatase 90 U/L (39-117); Anion Gap 11 (12-20); Aspartate Amino Transferase 20 U/L (5-37); Bilirubin Total 0.4 mg/dL (0.0-1.0); Blood Urea Nitrogen 26 mg/dL (9-16); Calcium 9.2 mg/dL (8.4-10.2); Carbon Dioxide 28 mmol/L (22-29); Chloride 104 mmol/L (96-108); Cholesterol 198 mg/dL (<200); Estimated Glomerular Filt Rate 60; Glucose Fasting 99 mg/dL (60-99); HDL Cholesterol 49 mg/dL (>40); LDL Cholesterol Calculated 127 mg/dL (<100); Potassium 4.2 mmol/L (3.3-5.1); Sodium 139 mmol/L (135-145); Total Protein 6.6 g/dL (6.5-8.0); Triglycerides 110 mg/dL (<150)
== END 2023-07-29 07:59 | disposition home or self-care (01) ==
LOC: HO.HMGCLDS 07:58
PROVIDERS: PCP Internal Medicine; Visit Provider Internal Medicine
DX: E78.9 Disorder of lipoprotein metabolism, unspecified (principal); R73.01 Impaired fasting glucose
CPT/HCPCS: 36415; 80053; 80061; 85025

== ENCOUNTER 2023-08-09 13:53 | Outpatient (AMB) | payer MEDICARE, SELFPAY ==
[2023-08-09 13:55] VITALS: BP 122/68; PULSE 56; O2SAT 100; BMI 29.5
--- NOTE | 2023-08-09 13:55 | A.OFFPC_ITS ---
Vital Signs 08/09/23 13:55 Height 5 ft 8 in Weight 194 lb BMI 29.5 BP 122/68 Blood Pressure Location Rt brachial Position Sitting Pulse 56 Pulse Source Pulse Oximeter Pulse Oximetry (%) 100 Oxygen Delivery Method Room Air Intake Visit Reasons: 6 Month follow up Allergies oxycodone [From OxyContin] Allergy (Unknown, Verified 08/09/23 13:55) Hallucinations Medication List - Last Reconciled 08/09/23 by Sanjay Cole MD atorvastatin 20 mg PO DAILY 90 days calcium carbonate (Antacid (calcium carbonate)) 200 mg PO DAILY cetirizine (Zyrtec) 5 mg PO DAILY PRN coenzyme Q10 (Ultra CoQ10) 75 mg PO DAILY cranberry extract 250 mg PO DAILY fluticasone furoate 50 mcg/actuation inhalation glucosamine-chondroitin 500-400 mg 1 cap PO DAILY magnesium 250 mg PO DAILY ryidhxgf-hhx-ecrpg-vit K-lycop 400-20-370 mcg (Men's 50 Plus Multivitamin) 1 tab PO DAILY nitrofurantoin monohyd/m-cryst 100 mg 1 cap PO BID tamsulosin 0.4 mg PO DAILY 90 days Tobacco use date assessed: 08/09/23 Fall risk assessment: No Falls in past year Last assessed Fall Risk: 08/09/23 Dental Screening Dental Screen Date: 08/09/23 Did you have a dental visit in the last 12 months?: Yes Did you have a dental problem in the last 6 months where you did not have access to dental care?: No Was dental information given to patient?: Patient has dentist HPI 6 Month follow up HPI Details Patient is a 73-year-old male came in today for six-month follow-up appointment Patient had colonoscopy [address] Arce Patient have a history of prostatic cancer and is under care off [facility] Urologist Dr. Guerrero Patient have a history of recurrent UTIs, he has a standing order for nitrofurantoin by urologist Only medication through our office is lovastatin 20 mg for lipid control. Labs done recently this month reviewed with the patient New set of lab order placed to be done in 6 months Allergies are stable with antihistamine and steroid nasal spray Patient has been having swelling of his right leg, on examination today he has 2+ edema to whaley. He has seen vascular specialist Currently patient is wearing compression stocking which is controlling his sympt oms. Follow-up 6 months for physical exam [facility] Medical History Lipid disorder Gall stones Elevated PSA Renal calculus, bilateral Bilateral renal cysts Pancreatic lesion Surgical History Hx of colonoscopy History of inguinal hernia repair, bilateral Family History Father Diabetes mellitus Mother No problems noted. Social History Household Members: Spouse Housing: House Alcohol intake: current Alcohol intake frequency: a few times a month Alcohol type: wine Patient Tobacco Use Status: Former Tobacco user Tobacco use type: Cigarette Years Smoked: 11 years e-Cigarette/Vaping Use: Never Used service: No Current occupational status: employed Current occupation: [employer] Current occupational exposures/hazards: Yes Cognitive needs: No Hearing needs: No Vision needs: No Questionnaire PHQ-9 Over the last 2 weeks, how often have you been bothered by any of the following problems? 1. Little interest or pleasure in doing things: not at all 2. Feeling down, depressed, or hopeless: not at all 3. Trouble falling or staying asleep, or sleeping too much: not at all 4. Feeling tired or having little energy: not at all 5. Poor appetite or overeating: not at all 6. Feeling bad about yourself - or that you are a failure or have let yourself or your family down: not at all 7. Trouble concentrating on things, such as reading the newspaper or watching television: not at all 8. Moving or speaking so slowly that other people could have noticed. Or the opposite - being so fidgety or restless that you have been moving around a lot more than usual: not at all 9. Thoughts that you would be better off or of hurting yourself in some way: not at all Total score: 0 Depression Screening Interpretation: Negative Depression Screening Done: Yes 51292 - PHQ-9 Billing: Yes Source: Developed by Drs. Naveed Pitt, Temitope Gordillo, Ham Campos and colleagues, with an educational lisa from [employer]. Thrive Questionnaire Date Thrive assessed: 08/09/23 I am a: Patient What is your living situation today?: I have a steady place to live Within the past 12 months, did the food you bought not last and you didn't have the money to get more?: Never true Within the past 12 months, did you worry whether your food would run out before you got money to buy more?: Never true Do you have trouble paying for medicines?: No Do you have trouble getting transportation to medical appointments?: No Do you have trouble paying your heating and electricity bill?: No Do you have trouble taking care of your child, family member or friend?: No Do you have trouble with day-to-day activities such as bathing, preparing meals, shopping, managing finances, etc.?: I choose not to answer this question Are you currently unemployed and looking for a job?: No Are you interested in more education?: No Please select the resources that you would like help with: None Currently or been in a relationship where the following occur: no concerns reported THRIVE Score: 0 AUDIT C Alcohol Use Questionnaire (AUDIT-C) 1. How often do you have a drink containing alcohol?: Monthly or less 2. How many drinks containing alcohol do you have on a typical day when you are drinking?: 1 or 2 3. How often do you have six or more drinks on one occasion?: Never Total Score: 1 Score Reviewed/Action Taken: Yes KARINA-7 AMB Questionnaire KARINA-7 Date KARINA - 7 assessed: 08/09/23 Feeling nervous, anxious, or on edge: 0 = Not at all Not being able to stop or control worryin = Not at all Worrying too much about different things: 0 = Not at all Trouble relaxin = Not at all Being so restless that it is hard to sit still: 0 = Not at all Becoming easily annoyed or irritable: 0 = Not at all Feeling afraid as if something awful might happen: 0 = Not at all Total KARINA-7 score (0-4 normal; 5-9 mild; 10-14 moderate; 15-21 severe): 0 Source: Developed by Drs. Naveed Pitt, Temitope Gordillo, Ham Campos and colleagues, with an educational lisa from [employer]. KARINA-7 Assessment Billing KARINA-7 Assessment Tool: KARINA-7 Assessment 92294 Review of Systems Const Denies chills and Denies fever(s) ENT Denies epistaxis and Denies nasal discharge Card Denies chest pain Resp Denies chest congestion, Denies cough and Denies hemoptysis GI Denies diarrhea and Denies nausea Skin/Breast Denies rash Neuro Reports no additional complaints Psych Reports no additional complaints Endo Reports no additional complaints Physical exam (Primary Care) Vital Signs: Last Vital Signs Pulse 56 08/09/23 13:55 BP 122/68 08/09/23 13:55 Pulse Ox 100 08/09/23 13:55 Oxygen Delivery Method Room Air 08/09/23 13:55 BMI result Body Mass Index 29.5 Tobacco/Smoking Status: Tobacco use Status Tobacco use date assessed 08/09/23 08/09/23 13:56 Patient Tobacco Use Status Former Tobacco user 08/09/23 13:56 Tobacco use type Cigarette 08/09/23 13:56 e-Cigarette/Vaping Use Never Used 08/09/23 13:56 PHQ-9: PHQ-9 Score PHQ-9: Total score 0 08/09/23 14:40 Depression Screening Interpretation: Negative Thrive Assessment: Date of Thrive Assessment Date Thrive assessed 08/09/23 08/09/23 13:56 Currently or been in a relationship where the following occur: no concerns reported Const General: cooperative, comfortable and no acute distress Orientation/consciousness: patient oriented x3 HENMT Head: Yes normocephalic Eyes General: appearance normal, both eyes and all related structures Neck Neck: Yes supple Resp Effort & Inspection: normal respiratory effort, no cough and no stridor Cardio Rhythm: regular rhythm Heart sounds: S1 normal heart sound present and S2 normal heart sound present Skin General skin exam: turgor normal Neuro General: patient oriented x3, tone normal and moves all extremities Extrem Right lower extremity: no edema Left lower extremity: no edema Assessment and Plan Assessment & Plan (1) Peripheral vascular disease of extremity: Code(s): I73.9 - Peripheral vascular disease, unspecified (2) Hx of prostatic malignancy: Code(s): Z85.46 - Personal history of malignant neoplasm of prostate (3) Lipid disorder: Code(s): E78.9 - Disorder of lipoprotein metabolism, unspecified (4) Impaired fasting blood sugar: Code(s): R73.01 - Impaired fasting glucose (5) Environmental allergies: Code(s): Z91.09 - Other allergy status, other than to drugs and biological substances Plan Patient is a 73-year-old male came in today for six-month follow-up appointment Patient had colonoscopy [address] Arce Patient have a history of prostatic cancer and is under care off [facility] Urologist Dr. Guerrero Patient have a history of recurrent UTIs, he has a standing order for nitrofurantoin by urologist Only medication through our office is lovastatin 20 mg for lipid control. Labs done recently this month reviewed with the patient New set of lab order placed to be done in 6 months Allergies are stable with antihistamine and steroid nasal spray Patient has been having swelling of his right leg, on examination today he has 2+ edema to whaley. He has seen vascular specialist Currently patient is wearing compression stocking which is controlling his symptoms. Follow-up 6 months for physical exam Orders: Orders Complete Blood Count Auto Diff 5 Months E78.9 - Disorder of lipoprotein metabolism, unspecified, I73.9 - Peripheral vascular disease, unspecified, R73.01 - Impaired fasting glucose Comprehensive [place]. Panel Fast 5 Months E78.9 - Disorder of lipoprotein metabolism, unspecified, I73.9 - Peripheral vascular disease, unspecified, R73.01 - Impaired fasting glucose Lipid Panel 5 Months E78.9 - Disorder of lipoprotein metabolism, unspecified, I73.9 - Peripheral vascular disease, unspecified, R73.01 - Impaired fasting glucose Coding Level of Care Code Est Pt Level 4 (38425) Diagnoses Peripheral vascular disease of extremity I73.9 Hx of prostatic malignancy Z85.46 Lipid disorder E78.9 Impaired fasting blood sugar R73.01 Environmental allergies Z91.09 Additional Codes KARINA-7 Assessment Billing - KARINA-7 Assessment Tool: KARINA-7 Assessment [id number] ([id number])
== END 2023-08-09 14:38 | disposition home or self-care (01) ==
PROVIDERS: PCP Internal Medicine; Visit Provider Internal Medicine
DX: I73.9 Peripheral vascular disease, unspecified (principal); Z85.46 Personal history of malignant neoplasm of prostate; E78.9 Disorder of lipoprotein metabolism, unspecified; R73.01 Impaired fasting glucose; Z91.09 Other allergy status, other than to drugs and biological substances
CPT/HCPCS: 99214

== ENCOUNTER 2023-11-23 08:13 | Outpatient (AMB) | payer MEDICARE, SELFPAY ==
--- NOTE | 2023-11-23 09:00 | MHC.OFFWIV ---
Intake Vital Signs 11/23/23 09:01 Height 5 ft 8 in Weight 185 lb BMI 28.1 BP 128/70 Blood Pressure Location Rt brachial Position Sitting Pulse 55 Pulse Source Pulse Oximeter Temp 97.9 F Temp Source Oral Pulse Oximetry (%) 97 Oxygen Delivery Method Room Air Intake Visit Reasons: Lt arm muscle pain Intake Note: pt here c/o LT arm muscle pain. started 4 days ago after playing golf Patient Tobacco Use Status: Former Tobacco user Allergies oxycodone [From OxyContin] Allergy (Unknown, Verified 11/23/23 09:00) Hallucinations Do you need a note to return to daycare/school/sports/work: No HPI HPI Comments History of Present Illness Details Patient is a 73-year-old male complaining of left arm pain in his biceps muscle and leading into his shoulder x1 week. He states he started working out a few months ago with a principal trainer and he thinks he injured it when he was doing a pull-down motion with weights and then he went golfing a few days later and he thinks he injured it more because it has been more sore since that day. He has not tried anything to make it better. He states he has had a history of similar pain in the past with this particular biceps and shoulder and he was trying to go to the gym to build up his strength in that arm and shoulder. [facility] Medical History Lipid disorder Gall stones Elevated PSA Renal calculus, bilateral Bilateral renal cysts Pancreatic lesion Surgical History Hx of colonoscopy History of inguinal hernia repair, bilateral Family History Father Diabetes mellitus Mother No problems noted. 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 Current occupational exposures/hazards: Yes Cognitive needs: No Hearing needs: No Vision needs: No Review of Systems Const All systems reviewed & are unremarkable except as noted in HPI and below Physical Exam Vital Signs: Last Vital Signs Temp 97.9 F 11/23/23 09:01 Pulse 55 11/23/23 09:01 BP 128/70 11/23/23 09:01 Pulse Ox 97 11/23/23 09:01 Oxygen Delivery Method Room Air 11/23/23 09:01 BMI result Body Mass Index 28.1 Const General: cooperative, healthy appearing, comfortable, no acute distress and well developed Orientation/consciousness: patient oriented x3 Limitations: no limitations HEENT Head: Yes normal to inspection Eyes General: appearance normal, both eyes and all related structures Neck Neck: Yes normal visual inspection and Yes full ROM Resp Effort & Inspection: normal respiratory effort and able to speak in complete sentences Skin General skin exam: no rashes or lesions noted Neuro General: patient oriented x3 Extrem General: Yes normal to inspection Left upper extremity: normal to inspection, no joint enlargement and shoulder/upper arm Details: tenderness Location: over the biceps tendon (proximal insertion point ) and other (Along the triceps), axillary nerve sensory function normal and normal ROM (with pain); no swelling Assessment & Plan Assessment & Plan (1) Sprain of left shoulder: Code(s): S43.402A - Unspecified sprain of left shoulder joint, initial encounter Qualifiers: Encounter type: initial encounter Shoulder sprain type: unspecified sprain Qualified Code(s): S43.402A - Unspecified sprain of left shoulder joint, initial encounter Plan: Recommended rest ice and the leave around the clock for the next few days. Gave patient a shoulder sling. If this pain continues, recommended a follow up with his PCP Plan See above Coding Level of Care Code Est Pt Level 3 (31822) Diagnoses Sprain of left shoulder, unspecified shoulder sprain type, initial encounter S43.402A Encounter type: initial encounter Shoulder sprain type: unspecified sprain
[2023-11-23 09:01] VITALS: BP 128/70; PULSE 55; TEMP 36.6; O2SAT 97; BMI 28.1
== END 2023-11-23 09:36 | disposition home or self-care (01) ==
PROVIDERS: PCP Internal Medicine; Visit Provider Physician Assistant
DX: S43.402A Unspecified sprain of left shoulder joint, initial encounter (principal)
CPT/HCPCS: 99213

== ENCOUNTER 2024-02-16 08:23 | Outpatient (REF) | payer MEDICARE, SELFPAY ==
[2024-02-16 10:54] LABS: MANUAL DIFF FLAG NO
[2024-02-16 11:01] LABS: Basophils Percent Auto 0.9 % (0-2); Eosinophils Absolute Auto 0.3 X10*3/uL (0.0-0.4); Eosinophils Percent Auto 7.7 % (0-4); Hematocrit 40.2 % (42.0-52.0); Hemoglobin 13.3 g/dl (14.0-18.0); Imm Gran Abs Auto 0.01 X10*3/uL (0.00-0.03); Imm Gran Pct Auto 0.3 % (0.0-0.4); Lymphocytes Absolute Auto 0.7 X10*3/uL (1.2-4.9); Lymphocytes Percent Auto 19.8 % (20-40); Mean Corpuscular HGB Conc 33.1 g/dl (31.0-36.0); Mean Corpuscular Hemoglobin 29.8 pg (27.0-33.0); Mean Corpuscular Volume 89.9 fL (80.0-98.0); Mean Platelet Volume 9.8 fL (9.4-12.4); Monocytes Absolute Auto 0.3 X10*3/uL (0.1-1.2); Neutrophils Absolute Auto 2.1 x10*3/uL (2.0-8.3); Neutrophils Percent Auto 63.3 % (45-73); Platelet Count 209 X10*3/uL (160-400); Red Blood Count 4.47 X10*6/uL (4.60-5.80); Red Cell Distribution Width 12.8 % (11.0-16.0); White Blood Count 3.4 X10*3/uL (4.8-10.8)
[2024-02-16 11:49] LABS: Alanine Aminotransferase 16 U/L (0-40); Albumin Level 3.9 g/dL (3.5-5.0); Alkaline Phosphatase 85 U/L (39-117); Anion Gap 11 (12-20); Aspartate Amino Transferase 18 U/L (5-37); Bilirubin Total 0.5 mg/dL (0.0-1.0); Blood Urea Nitrogen 20 mg/dL (9-16); Calcium 9.5 mg/dL (8.4-10.2); Carbon Dioxide 27 mmol/L (22-29); Chloride 107 mmol/L (96-108); Cholesterol 189 mg/dL (<200); Estimated Glomerular Filt Rate > 60; Glucose Fasting 97 mg/dL (60-99); HDL Cholesterol 51 mg/dL (>40); LDL Cholesterol Calculated 122 mg/dL (<100); Potassium 4.7 mmol/L (3.3-5.1); Sodium 140 mmol/L (135-145); Total Protein 6.3 g/dL (6.5-8.0); Triglycerides 82 mg/dL (<150)
== END 2024-02-16 08:24 | disposition home or self-care (01) ==
LOC: HO.HMGCLDS 08:23
PROVIDERS: PCP Internal Medicine; Visit Provider Internal Medicine
DX: R73.01 Impaired fasting glucose (principal); I73.9 Peripheral vascular disease, unspecified; E78.9 Disorder of lipoprotein metabolism, unspecified
CPT/HCPCS: 36415; 80053; 80061; 85025

== ENCOUNTER 2024-02-23 14:23 | Outpatient (AMB) | payer MEDICARE, SELFPAY ==
[2024-02-23 14:26] VITALS: BP 134/68; PULSE 52; O2SAT 97; BMI 27.4
--- NOTE | 2024-02-23 14:26 | MHC.PC.OV ---
Vital Signs 02/23/24 14:26 Height 5 ft 8 in Weight 180 lb 8 oz BMI 27.4 BP 134/68 Blood Pressure Location Rt brachial Position Sitting Pulse 52 Pulse Source Pulse Oximeter Pulse Oximetry (%) 97 Oxygen Delivery Method Room Air Intake Visit Reasons: Annual PE Allergies oxycodone [From OxyContin] Allergy (Unknown, Verified 02/23/24 14:27) Hallucinations Medication List - Last Reconciled 02/23/24 by Sanjay Cole MD atorvastatin 20 mg PO DAILY 90 days calcium carbonate (Antacid (calcium carbonate)) 200 mg PO DAILY cetirizine (Zyrtec) 5 mg PO DAILY PRN coenzyme Q10 (Ultra CoQ10) 75 mg PO DAILY cranberry extract 250 mg PO DAILY fluticasone furoate 50 mcg/actuation inhalation glucosamine-chondroitin 500-400 mg 1 cap PO DAILY magnesium 250 mg PO DAILY ztvrubde-fzs-vpllm-vit K-lycop 400-20-370 mcg (Men's 50 Plus Multivitamin) 1 tab PO DAILY tamsulosin 0.4 mg PO DAILY 90 days Tobacco use date assessed: 02/23/24 Fall risk assessment: No Falls in past year Last assessed Fall Risk: 02/23/24 Dental Screening Dental Screen Date: 02/23/24 Did you have a dental visit in the last 12 months?: Yes Did you have a dental problem in the last 6 months where you did not have access to dental care?: No Was dental information given to patient?: Patient has dentist HPI Annual PE HPI Details Patient is a 73-year-old male came in today for physical exam Patient had colonoscopy [address] Arce Patient have a history of prostatic cancer and is under care off [facility] Urologist Dr. Guerrero Patient have a history of recurrent UTIs, he has a standing order for nitrofurantoin by urologist Only medication through our office is lovastatin 20 mg for lipid control. Labs done recently this month reviewed with the patient His hemoglobin continued to be low at 13.3 with microcytic indices I would recommend to start taking iron twice a week. Script sent We will repeat labs again in 6 months Allergies are stable with antihistamine and steroid nasal spray Has chronic swelling of his right leg up to whaley He has seen vascular specialist Currently patient is wearing compression stocking which is controlling his symptoms. Follow-up 6 months [facility] Medical History Lipid disorder Gall stones Elevated PSA Renal calculus, bilateral Bilateral renal cysts Pancreatic lesion Surgical History Hx of colonoscopy History of inguinal hernia repair, bilateral Family History Father Diabetes mellitus Mother No problems noted. Social History Household Members: Spouse Housing: House Alcohol intake: current Alcohol intake frequency: a few times a month Alcohol type: wine Patient Tobacco Use Status: Former Tobacco user Tobacco use type: Cigarette Years Smoked: 11 years e-Cigarette/Vaping Use: Never Used service: No Current occupational status: employed Current occupation: Store[employer] Current occupational exposures/hazards: Yes Cognitive needs: No Hearing needs: No Vision needs: No Questionnaire PHQ-9 Over the last 2 weeks, how often have you been bothered by any of the following problems? 1. Little interest or pleasure in doing things: not at all 2. Feeling down, depressed, or hopeless: not at all 3. Trouble falling or staying asleep, or sleeping too much: not at all 4. Feeling tired or having little energy: not at all 5. Poor appetite or overeating: not at all 6. Feeling bad about yourself - or that you are a failure or have let yourself or your family down: not at all 7. Trouble concentrating on things, such as reading the newspaper or watching television: not at all 8. Moving or speaking so slowly that other people could have noticed. Or the opposite - being so fidgety or restless that you have been moving around a lot more than usual: not at all 9. Thoughts that you would be better off or of hurting yourself in some way: not at all Total score: 0 Depression Screening Interpretation: Negative Depression Screening Done: Yes 81513 - PHQ-9 Billing: Yes Source: Developed by Drs. Naveed Pitt, Temitope Gordillo, Ham Campos and colleagues, with an educational lisa from [employer]. Thrive Questionnaire Date Thrive assessed: 02/23/24 I am a: Patient What is your living situation today?: I have a steady place to live Within the past 12 months, did the food you bought not last and you didn't have the money to get more?: Never true Within the past 12 months, did you worry whether your food would run out before you got money to buy more?: Never true Do you have trouble paying for medicines?: No Do you have trouble getting transportation to medical appointments?: No Do you have trouble paying your heating and electricity bill?: No Do you have trouble taking care of your child, family member or friend?: No Do you have trouble with day-to-day activities such as bathing, preparing meals, shopping, managing finances, etc.?: No Are you currently unemployed and looking for a job?: No Are you interested in more education?: No Please select the resources that you would like help with: None Currently or been in a relationship where the following occur: No concerns reported THRIVE Score: 0 AUDIT C Alcohol Use Questionnaire (AUDIT-C) 1. How often do you have a drink containing alcohol?: 2-4 times a month 2. How many drinks containing alcohol do you have on a typical day when you are drinking?: 1 or 2 3. How often do you have six or more drinks on one occasion?: Never Total Score: 2 Score Reviewed/Action Taken: Yes KARINA-7 AMB Questionnaire KARINA-7 Date KARINA - 7 assessed: 02/23/24 Feeling nervous, anxious, or on edge: 0 = Not at all Not being able to stop or control worryin = Not at all Worrying too much about different things: 0 = Not at all Trouble relaxin = Not at all Being so restless that it is hard to sit still: 0 = Not at all Becoming easily annoyed or irritable: 0 = Not at all Feeling afraid as if something awful might happen: 0 = Not at all Total KARINA-7 score (0-4 normal; 5-9 mild; 10-14 moderate; 15-21 severe): 0 Source: Developed by Drs. Naveed Pitt, Temitope Gordillo, Ham Campos and colleagues, with an educational lisa from [employer]. KARINA-7 Assessment Billing KARINA-7 Assessment Tool: KARINA-7 Assessment 68609 Review of Systems Const Denies chills, Denies fever(s) and Denies headache(s) Eyes Denies blurry vision ENT Denies headache(s), Denies nasal discharge, Denies nasal obstruction, Denies odynophagia and Denies sinus pain Card Denies chest pain at rest and Denies chest pain with activity Resp Denies cough and Denies hemoptysis GI Denies diarrhea, Denies odynophagia, Denies vomiting and Denies hematemesis Reports as per HPI Musc Denies abnormal gait Skin/Breast Reports as per HPI Neuro Denies Neuro-related abnormal movements, Denies Abnormal speech present, Denies abnormal gait, Denies headache(s) and Denies Sensory deficit (Neuro) Psych Denies mood swings and Denies paranoia Endo Reports as per HPI Hair/Lymph Reports as per HPI Aller/Immun Reports as per HPI Physical exam (Primary Care) Vital Signs: Last Vital Signs Pulse 52 02/23/24 14:26 BP 134/68 02/23/24 14:26 Pulse Ox 97 02/23/24 14:26 Oxygen Delivery Method Room Air 02/23/24 14:26 BMI result Body Mass Index 27.4 Tobacco/Smoking Status: Tobacco use Status Tobacco use date assessed 02/23/24 02/23/24 14:30 Patient Tobacco Use Status Former Tobacco user 02/23/24 14:30 Tobacco use type Cigarette 02/23/24 14:30 e-Cigarette/Vaping Use Never Used 02/23/24 14:30 PHQ-9: PHQ-9 Score PHQ-9: Total score 0 02/23/24 14:30 Depression Screening Interpretation: Negative Thrive Assessment: Date of Thrive Assessment Date Thrive assessed 02/23/24 02/23/24 14:30 Currently or been in a relationship where the following occur: No concerns reported Const General: cooperative, comfortable and no acute distress Orientation/consciousness: patient oriented x3 HENMT Head: Yes normocephalic and Yes atraumatic Eyes General: appearance normal, both eyes and all related structures Pupils: Equal, round and reactive pupils present EOM: EOMs intact bilaterally Neck Neck: Yes supple and No lymphadenopathy Thyroid: Thyroid normal Lymphatic: no lymphadenopathy noted Resp Effort & Inspection: normal respiratory effort and able to speak in complete sentences Auscultation: clear to auscultation bilaterally Cardio Heart sounds: S1 normal heart sound present and S2 normal heart sound present GI Palpation (GI): Soft to palpation and nontender Auscultation: normal bowel sounds General: Yes no CVA tenderness Back/Spine/Pelvis Back: no CVA tenderness Skin General skin exam: elasticity normal and turgor normal Neuro General: patient oriented x3 and gait normal Cranial nerves: Yes Equal, round and reactive pupils present Speech: No Abnormal speech present Sensory Exam: No Sensory deficit (Neuro) Coordination: tandem gait normal and Romberg test negative Extrem General: Yes normal exam except as noted Coding Level of Care Code Est Pt Level 3 (47551) Est Pt Prev Care >65y(98613) Diagnoses Encounter for general adult medical examination with abnormal findings Z00.01 Microcytic anemia D50.9 Right leg swelling M79.89 Peripheral vascular disease of extremity I73.9 Lipid disorder E78.9 Impaired fasting blood sugar R73.01 Additional Codes KARINA-7 Assessment Billing - KARINA-7 Assessment Tool: KARINA-7 Assessment 00612 ([id number]) Assessment & Plan Assessment & Plan (1) Encounter for general adult medical examination with abnormal findings: Code(s): Z00.01 - Encounter for general adult medical examination with abnormal findings Category: Medical (2) Microcytic anemia: Code(s): D50.9 - Iron deficiency anemia, unspecified Category: Medical (3) Right leg swelling: Code(s): M79.89 - Other specified soft tissue disorders Category: Medical (4) Peripheral vascular disease of extremity: Code(s): I73.9 - Peripheral vascular disease, unspecified Category: Medical (5) Lipid disorder: Code(s): E78.9 - Disorder of lipoprotein metabolism, unspecified Category: Medical (6) Impaired fasting blood sugar: Code(s): R73.01 - Impaired fasting glucose Category: Medical Plan Patient is a 73-year-old male came in today for physical exam Patient had colonoscopy [address] Arce Patient have a history of prostatic cancer and is under care off [facility] Urologist Dr. Guerrero Patient have a history of recurrent UTIs, he has a standing order for nitrofurantoin by urologist Only medication through our office is lovastatin 20 mg for lipid control. Labs done recently this month reviewed with the patient His hemoglobin continued to be low at 13.3 with microcytic indices I would recommend to start taking iron twice a week. Script sent We will repeat labs again in 6 months Allergies are stable with antihistamine and steroid nasal spray Has chronic swelling of his right leg up to whaley He has seen vascular specialist Currently patient is wearing compression stocking which is controlling his symptoms. Follow-up 6 months Orders: Orders Lipid Panel 6 Months D50.9 - Iron deficiency anemia, unspecified, E78.9 - Disorder of lipoprotein metabolism, unspecified, I73.9 - Peripheral vascular disease, unspecified, M79.89 - Other specified soft tissue disorders, R73.01 - Impaired fasting glucose Hemoglobin A1c 6 Months R73.01 - Impaired fasting glucose Complete Blood Count Auto Diff 6 Months D50.9 - Iron deficiency anemia, unspecified, E78.9 - Disorder of lipoprotein metabolism, unspecified, I73.9 - Peripheral vascular disease, unspecified, M79.89 - Other specified soft tissue disorders, R73.01 - Impaired fasting glucose Comprehensive [place]. Panel Fast 6 Months D50.9 - Iron deficiency anemia, unspecified, E78.9 - Disorder of lipoprotein metabolism, unspecified, I73.9 - Peripheral vascular disease, unspecified, M79.89 - Other specified soft tissue disorders, R73.01 - Impaired fasting glucose Ferritin 6 Months D50.9 - Iron deficiency anemia, unspecified, E78.9 - Disorder of lipoprotein metabolism, unspecified, I73.9 - Peripheral vascular disease, unspecified, M79.89 - Other specified soft tissue disorders, R73.01 - Impaired fasting glucose
== END 2024-02-23 14:56 | disposition home or self-care (01) ==
PROVIDERS: PCP Internal Medicine; Visit Provider Internal Medicine
DX: Z00.00 Encounter for general adult medical examination without abnormal findings (principal); I73.9 Peripheral vascular disease, unspecified; D50.9 Iron deficiency anemia, unspecified; M79.89 Other specified soft tissue disorders; E78.9 Disorder of lipoprotein metabolism, unspecified; R73.01 Impaired fasting glucose

== ENCOUNTER → 2024-02-23 14:23 | Outpatient (BNVA) | payer MEDICARE, SELFPAY | PROVIDERS: PCP Internal Medicine; Visit Provider Internal Medicine | DX: Z00.01 Encounter for general adult medical examination with abnormal findings (principal); D50.9 Iron deficiency anemia, unspecified; M79.89 Other specified soft tissue disorders; I73.9 Peripheral vascular disease, unspecified; E78.9 Disorder of lipoprotein metabolism, unspecified; R73.01 Impaired fasting glucose | CPT/HCPCS: 96127; 99212; 99397 ==

== ENCOUNTER 2024-08-15 07:22 | Outpatient (REF) | payer MEDICARE, SELFPAY ==
--- OUTSIDE RECORDS SUMMARY | 2024-08-15 07:25 | XMS_ITS | Patient Health Record ---
Author Organization [facility] Address [address] [place] [id number] Care Team Providers Care Student Services Dean Name Role Phone Douglas MCKOY, [facility] Primary [facility] Provider Naveed Herman [phone] Allergies Allergen (clinical drug ingredient) Drug/Non Drug Allergy documented on EMR Reaction Allergy Type Onset Date Status oxycodone OxyContin Unknown Drug Allergy Active Reason For Referral No Information Medications Medication SIG (Take, Route, Frequency, Duration) Notes Start Date End Date Status Flonase 50 MCG/DOSE 1 spray in each nost ril Nasally Once a day Active Atorvastatin Calcium 20 MG 1 tablet Orally Once a day Active ZyrTEC 10 MG 1 tablet Orally Once a day Active Tamsulosin HCl 0.4 MG 1 capsule Orally O nce a day Active Multivitamin Active Calcium Active Excedrin Extra Strength Not-Taking Chondroitin Sulfate Active Immunizations Vaccine Route Administration Date Status Comme nts Influenza Unknown 08/24/2021 Refused Social History Tobacco Use: Social History Observation Description Date Details (start date - stop date) Former Smoker NA - NA Tobacco Use/Smoking Question Answer Notes Patient is a former smoker How long has it been since you last smoked? > 10 years Alcohol Screen Question Answer Notes Did you have a drink contain ing alcohol in the past year? Yes How often did you have a dri nk containing alcohol in the past year? 2 to 4 times a month (2 points) How many drinks did you have on a typical day when you were drinking in the past year? 1 or 2 drinks (0 point) How often did you have 6 or more drinks on one occasion in the past year? Never (0 point) Points 2 Interpretation Negative Section Notes: Nonsmoker > 30 yrs; no sig a lcohol Nonsmoker > 30 yrs; no sig a lcohol Problems Problem Type SNOMED Code ICD Code Onset Dates Problem Status W/U Status Risk Notes Problem 10828208 Rectal bleeding (K62.5) Active confirmed Problem 016924767 Encounter for screening for malignant neoplasm of colon (Z12.11) Active confirmed Problem 272055298 History of adenomatous polyp of colon (Z86.010) Active confirmed Problem 21689205 Calculus of gallbladder without cholecystitis without obstruction (K80.20) Active confirmed Problem 182363978284690 Preprocedural examination (Z01.818) Active confirmed Problem 48798634 Pancreatic cyst (K86.2) Active confirmed Problem Diverticulosis of colon (706516987) Diverticulosis of colon (K57.30) Active confirmed Problem History of gastrointestinal tract bypass (798694925) History of Billroth II operation (Z98.0) Active confirmed Plan Of Treatment Pending Test Test Name Order Date Pathology 11/05/2021 Future Test Test Name Order Date COLONOSCOPY 11/15/2017 COLONOSCOPY 08/24/2021 Insurance Providers Payer Name Payer Address Payer Phone Subscriber Number Group Number Insured Name Patient Relationship to Insured Coverage Start Date Coverage End Date [facility] [address] [place], [place] [id number] [phone] [id number] PEDRO PABLO KEYS Self - patient is the insured Medical (General) History Medical History History ICD Code Denies [place],DM,CVA,Lung disease,renal dise ase BPH Hyperlipidemia Allergies Colonoscopy in 2007 in [place]--he d escribes this as negative Diverticulitis with surgery as described below--he denies any recurrent problems in that regard Colonoscopy in 03/2018 with a small tubular adenoma, hyperplastic polyp, normal anastomosis, and internal hemorrhoids Prostate cancer diagnosed --XRT in 08/2020-10/2020--Dr. Cruz, urologist in [place] Asymptomatic gallstones seen on 01/2020 CT Pancreatic tail cyst seen on CT 01/2020. ....1.2cm in size Surgical History Surgery Date(Month/Year) Inguinal hernia repair x 2---right and l eft 1995,2002 Sigmoid colon resection--Dr. Adrian--temp orary colostomy 10/2001 Colostomy reversed 01/2002 Spermatocele
[2024-08-15 10:04] LABS: MANUAL DIFF FLAG NO
[2024-08-15 10:22] LABS: Basophils Percent Auto 0.6 % (0-2); Eosinophils Absolute Auto 0.3 X10*3/uL (0.0-0.4); Eosinophils Percent Auto 8.3 % (0-4); Hemoglobin 13.3 g/dl (14.0-18.0); Imm Gran Abs Auto 0.01 X10*3/uL (0.00-0.03); Imm Gran Pct Auto 0.3 % (0.0-0.4); Lymphocytes Absolute Auto 0.7 X10*3/uL (1.2-4.9); Lymphocytes Percent Auto 19.4 % (20-40); Mean Corpuscular HGB Conc 33.3 g/dl (31.0-36.0); Mean Corpuscular Hemoglobin 30.4 pg (27.0-33.0); Mean Corpuscular Volume 91.3 fL (80.0-98.0); Mean Platelet Volume 9.8 fL (9.4-12.4); Monocytes Absolute Auto 0.4 X10*3/uL (0.1-1.2); Monocytes Percent Auto 10.6 % (2-11); Neutrophils Absolute Auto 2.2 x10*3/uL (2.0-8.3); Neutrophils Percent Auto 60.8 % (45-73); Platelet Count 194 X10*3/uL (160-400); Red Blood Count 4.38 X10*6/uL (4.60-5.80); Red Cell Distribution Width 12.5 % (11.0-16.0); White Blood Count 3.6 X10*3/uL (4.8-10.8)
[2024-08-15 10:28] LABS: Estimated Average Glucose 105 mg/dL; Hemoglobin A1C 117.4359 umol/L; Hemoglobin A1c % 5.3 % (<6.0); Total Hemoglobin (HGBA1C) 3452.9945 umol/L
[2024-08-15 10:38] LABS: Alanine Aminotransferase 16 U/L (0-40); Albumin Level 3.9 g/dL (3.5-5.0); Anion Gap 10 (12-20); Aspartate Amino Transferase 25 U/L (5-37); Bilirubin Total 0.5 mg/dL (0.0-1.0); Blood Urea Nitrogen 33 mg/dL (9-16); Calcium 9.4 mg/dL (8.4-10.2); Carbon Dioxide 28 mmol/L (22-29); Chloride 108 mmol/L (96-108); Cholesterol 171 mg/dL (<200); Estimated Glomerular Filt Rate > 60; Glucose Fasting 91 mg/dL (60-99); HDL Cholesterol 45 mg/dL (>40); LDL Cholesterol Calculated 108 mg/dL (<100); Potassium 4.8 mmol/L (3.3-5.1); Sodium 141 mmol/L (135-145); Total Protein 6.4 g/dL (6.5-8.0); Triglycerides 92 mg/dL (<150)
[2024-08-15 10:58] LABS: Alkaline Phosphatase 82 U/L (39-117)
[2024-08-15 11:06] LABS: Ferritin 247 ng/mL (20-250)
== END 2024-08-15 07:23 | disposition home or self-care (01) ==
LOC: HO.HMGCLDS 07:22
PROVIDERS: PCP Internal Medicine; Visit Provider Internal Medicine
DX: R73.01 Impaired fasting glucose (principal); M79.89 Other specified soft tissue disorders; I73.9 Peripheral vascular disease, unspecified; E78.9 Disorder of lipoprotein metabolism, unspecified; D50.9 Iron deficiency anemia, unspecified
CPT/HCPCS: 36415; 80053; 80061; 82728; 83036; 85025

== ENCOUNTER 2024-08-21 08:16 | Outpatient (AMB) | payer MEDICARE, SELFPAY ==
[2024-08-21 08:25] VITALS: BP 110/64; PULSE 70; O2SAT 98; BMI 29.2
--- NOTE | 2024-08-21 08:25 | MHC.PC.OV ---
Vital Signs 08/21/24 08:25 Height 5 ft 8 in Weight 192 lb 4 oz BMI 29.2 BP 110/64 Blood Pressure Location Rt brachial Position Sitting Pulse 70 Pulse Source Pulse Oximeter Pulse Oximetry (%) 98 Oxygen Delivery Method Room Air Intake Visit Reasons: 6m follow up Allergies oxycodone [From OxyContin] Allergy (Unknown, Verified 08/21/24 08:25) Hallucinations Medication List - Last Reconciled 08/21/24 by Sanjay Cole MD atorvastatin 20 mg PO DAILY 90 days calcium carbonate (Antacid (calcium carbonate)) 200 mg PO DAILY cetirizine (Zyrtec) 5 mg PO DAILY PRN coenzyme Q10 (Ultra CoQ10) 75 mg PO DAILY cranberry extract 250 mg PO DAILY fluticasone furoate 50 mcg/actuation inhalation glucosamine-chondroitin 500-400 mg 1 cap PO DAILY magnesium 250 mg PO DAILY pvhoexuu-qvl-akvjd-vit K-lycop 400-20-370 mcg (Men's 50 Plus Multivitamin) 1 tab PO DAILY tamsulosin 0.4 mg PO DAILY 90 days Tobacco use date assessed: 08/21/24 Fall risk assessment: No Falls in past year Last assessed Fall Risk: 08/21/24 Dental Screening Dental Screen Date: 08/21/24 Did you have a dental visit in the last 12 months?: Yes Did you have a dental problem in the last 6 months where you did not have access to dental care?: No Was dental information given to patient?: Patient declined HPI 6m follow up HPI Details History - The patient is a 74-year-old male presenting for routine follow-up. - Iron Deficiency Anemia: Previously diagnosed with iron deficiency anemia, the patient has been taking iron supplements. Recent lab results show improved iron status, with ferritin level at 247 (upper limit of normal is 250). No need for further iron supplementation at present. Hemoglobin is stable but still slightly low. We will continue to monitor - Hyperlipidemia: The patient is currently on atorvastatin 20 mg for cholesterol management, which is well-controlled according to recent laboratory results. - Seasonal Allergic Rhinitis: The patient reports controlling allergy symptoms using cetirizine and nasal spray with good effect. Symptoms mostly resolved recently. - prostatic cancer: The patient is followed by a urologist for prostate health. Recent PSA has risen to 0.1, and management plan includes monitoring every six months, with potential Elegard injections if PSA rises to 1.5. - Right Ankle Swelling: The patient experienced episodic swelling, secondary to vascular problem, noted to have decreased significantly with weight loss. - Social/Activity: The patient maintains an active lifestyle, attending the gym five to six times a week and playing golf, which he enjoys, especially with the arrival of spring. Problem List - Iron Deficiency Anemia (resolved) - Hyperlipidemia - Seasonal Allergic Rhinitis - Benign Prostatic Hyperplasia with Elevated Prostate-Specific Antigen (PSA) Patient Instructions - Stop taking iron supplements as current levels are adequate. - Continue current medications, including atorvastatin 20 mg for cholesterol management and cetirizine for allergies as needed. - Maintain active lifestyle with regular exercise at the gym and golfing. - Schedule labs a week prior to your January appointment. - Follow-up with urologist in November for regular check-up and labs. - Seek medical care sooner if you experience increased swelling or any new symptoms. Review of Systems - General: No fever no chills - Neurological: No headaches no dizziness - Ear nose throat: No sore throat no hearing difficulty no ear pain - Cardiovascular: No syncope, no chest pain, no palpitations - Gastrointestinal: No nausea vomiting or diarrhea - Endocrine: No polyuria polydipsia no heat intolerance - Genitourinary: No dysuria , no blood in urine Physical Exam General: No acute distress HEENT: No acute findings Neck: Supple Respiratory system: Able to talk in full sentences, no audible wheeze, lungs are clear Cardiovascular: S1-S2 regular in rate and rhythm Gastrointestinal: No pain Extremities: Right ankle circumference larger than left but no pitting edema CLINIC DIRECTOR: Alert awake oriented x3 motor sensory intact Skin: Normal turgor [facility] Medical History Lipid disorder Gall stones Elevated PSA Renal calculus, bilateral Bilateral renal cysts Pancreatic lesion Surgical History Hx of colonoscopy History of inguinal hernia repair, bilateral Family History Father Diabetes mellitus Mother No problems noted. Social History Household Members: Spouse Housing: House Alcohol intake: current Alcohol intake frequency: a few times a month Alcohol type: wine Patient Tobacco Use Status: Former Tobacco user Tobacco use type: Cigarette Years Smoked: 11 years e-Cigarette/Vaping Use: Never Used service: No Current occupational status: employed Current occupation: [employer] Current occupational exposures/hazards: Yes Cognitive needs: No Hearing needs: No Vision needs: No Questionnaire PHQ-9 Over the last 2 weeks, how often have you been bothered by any of the following problems? 1. Little interest or pleasure in doing things: not at all 2. Feeling down, depressed, or hopeless: not at all 3. Trouble falling or staying asleep, or sleeping too much: not at all 4. Feeling tired or having little energy: not at all 5. Poor appetite or overeating: not at all 6. Feeling bad about yourself - or that you are a failure or have let yourself or your family down: not at all 7. Trouble concentrating on things, such as reading the newspaper or watching television: not at all 8. Moving or speaking so slowly that other people could have noticed. Or the opposite - being so fidgety or restless that you have been moving around a lot more than usual: not at all 9. Thoughts that you would be better off or of hurting yourself in some way: not at all Total score: 0 Depression Screening Interpretation: Negative Depression Screening Done: Yes 06243 - PHQ-9 Billing: Yes Source: Developed by Drs. Naveed Pitt, Temitope Gordillo, Ham Campos and colleagues, with an educational lisa from [employer]. Thrive Questionnaire Date Thrive assessed: 08/21/24 I am a: Patient What is your living situation today?: I have a steady place to live Within the past 12 months, did the food you bought not last and you didn't have the money to get more?: Never true Within the past 12 months, did you worry whether your food would run out before you got money to buy more?: Never true Do you have trouble paying for medicines?: No Do you have trouble getting transportation to medical appointments?: No Do you have trouble paying your heating and electricity bill?: No Do you have trouble taking care of your child, family member or friend?: No Do you have trouble with day-to-day activities such as bathing, preparing meals, shopping, managing finances, etc.?: No Are you currently unemployed and looking for a job?: No Are you interested in more education?: No Please select the resources that you would like help with: None Currently or been in a relationship where the following occur: No concerns reported THRIVE Score: 0 AUDIT C Alcohol Use Questionnaire (AUDIT-C) 1. How often do you have a drink containing alcohol?: 2-4 times a month 2. How many drinks containing alcohol do you have on a typical day when you are drinking?: 1 or 2 3. How often do you have six or more drinks on one occasion?: Never Total Score: 2 Score Reviewed/Action Taken: Yes KARINA-7 AMB Questionnaire KARINA-7 Date KARINA - 7 assessed: 08/21/24 Feeling nervous, anxious, or on edge: 0 = Not at all Not being able to stop or control worryin = Not at all Worrying too much about different things: 0 = Not at all Trouble relaxin = Not at all Being so restless that it is hard to sit still: 0 = Not at all Becoming easily annoyed or irritable: 0 = Not at all Feeling afraid as if something awful might happen: 0 = Not at all Total KARINA-7 score (0-4 normal; 5-9 mild; 10-14 moderate; 15-21 severe): 0 Source: Developed by Drs. Naveed Pitt, Temitope Gordillo, Ham Campos and colleagues, with an educational lisa from [employer]. KARINA-7 Assessment Billing KARINA-7 Assessment Tool: KARINA-7 Assessment 10023 Physical exam (Primary Care) Vital Signs: Last Vital Signs Pulse 70 08/21/24 08:25 BP 110/64 08/21/24 08:25 Pulse Ox 98 08/21/24 08:25 Oxygen Delivery Method Room Air 08/21/24 08:25 BMI result Body Mass Index 29.2 Tobacco/Smoking Status: Tobacco use Status Tobacco use date assessed 08/21/24 08/21/24 08:28 Patient Tobacco Use Status Former Tobacco user 08/21/24 08:28 Tobacco use type Cigarette 08/21/24 08:28 e-Cigarette/Vaping Use Never Used 08/21/24 08:28 PHQ-9: PHQ-9 Score PHQ-9: Total score 0 08/21/24 08:28 Depression Screening Interpretation: Negative Thrive Assessment: Date of Thrive Assessment Date Thrive assessed 08/21/24 08/21/24 08:28 Currently or been in a relationship where the following occur: No concerns reported Coding Level of Care Code Est Pt Level 4 (86797) Complex EM visit Add On G2211 Diagnoses Microcytic anemia D50.9 Right leg swelling M79.89 Peripheral vascular disease of extremity I73.9 Lipid disorder E78.9 Impaired fasting blood sugar R73.01 Hx of prostatic malignancy Z85.46 Additional Codes KARINA-7 Assessment Billing - KARINA-7 Assessment Tool: KARINA-7 Assessment 11396 ([id number]) PHQ-9 - 98603 - PHQ-9 Billing: Yes ([id number]) Assessment & Plan Assessment & Plan (1) Microcytic anemia: Code(s): D50.9 - Iron deficiency anemia, unspecified Category: Medical (2) Right leg swelling: Code(s): M79.89 - Other specified soft tissue disorders Category: Medical (3) Peripheral vascular disease of extremity: Code(s): I73.9 - Peripheral vascular disease, unspecified Category: Medical (4) Lipid disorder: Code(s): E78.9 - Disorder of lipoprotein metabolism, unspecified Category: Medical (5) Impaired fasting blood sugar: Code(s): R73.01 - Impaired fasting glucose Category: Medical (6) Hx of prostatic malignancy: Code(s): Z85.46 - Personal history of malignant neoplasm of prostate Category: Medical Plan History - The patient is a 74-year-old male presenting for routine follow-up. - Iron Deficiency Anemia: Previously diagnosed with iron deficiency anemia, the patient has been taking iron supplements. Recent lab results show improved iron status, with ferritin level at 247 (upper limit of normal is 250). No need for further iron supplementation at present. Hemoglobin is stable but still slightly low. We will continue to monitor - Hyperlipidemia: The patient is currently on atorvastatin 20 mg for cholesterol management, which is well-controlled according to recent laboratory results. - Seasonal Allergic Rhinitis: The patient reports controlling allergy symptoms using cetirizine and nasal spray with good effect. Symptoms mostly resolved recently. - prostatic cancer: The patient is followed by a urologist for prostate health. Recent PSA has risen to 0.1, and management plan includes monitoring every six months, with potential Elegard injections if PSA rises to 1.5. - Right Ankle Swelling: The patient experienced episodic swelling, secondary to vascular problem, noted to have decreased significantly with weight loss. - Social/Activity: The patient maintains an active lifestyle, attending the gym five to six times a week and playing golf, which he enjoys, especially with the arrival of spring. Problem List - Iron Deficiency Anemia (resolved) - Hyperlipidemia - Seasonal Allergic Rhinitis - Benign Prostatic Hyperplasia with Elevated Prostate-Specific Antigen (PSA) Patient Instructions - Stop taking iron supplements as current levels are adequate. - Continue current medications, including atorvastatin 20 mg for cholesterol management and cetirizine for allergies as needed. - Maintain active lifestyle with regular exercise at the gym and golfing. - Schedule labs a week prior to your January appointment. - Follow-up with urologist in November for regular check-up and labs. - Seek medical care sooner if you experience increased swelling or any new symptoms. Orders: Orders Complete Blood Count Auto Diff 5 Months D50.9 - Iron deficiency anemia, unspecified, E78.9 - Disorder of lipoprotein metabolism, unspecified, I73.9 - Peripheral vascular disease, unspecified, M79.89 - Other specified soft tissue disorders, R73.01 - Impaired fasting glucose, Z85.46 - Personal history of malignant neoplasm of prostate Comprehensive [place]. Panel Fast 5 Months D50.9 - Iron deficiency anemia, unspecified, E78.9 - Disorder of lipoprotein metabolism, unspecified, I73.9 - Peripheral vascular disease, unspecified, M79.89 - Other specified soft tissue disorders, R73.01 - Impaired fasting glucose, Z85.46 - Personal history of malignant neoplasm of prostate Folate 5 Months D50.9 - Iron deficiency anemia, unspecified, E78.9 - Disorder of lipoprotein metabolism, unspecified, I73.9 - Peripheral vascular disease, unspecified, M79.89 - Other specified soft tissue disorders, R73.01 - Impaired fasting glucose, Z85.46 - Personal history of malignant neoplasm of prostate Vitamin B12 5 Months D50.9 - Iron deficiency anemia, unspecified, E78.9 - Disorder of lipoprotein metabolism, unspecified, I73.9 - Peripheral vascular disease, unspecified, M79.89 - Other specified soft tissue disorders, R73.01 - Impaired fasting glucose, Z85.46 - Personal history of malignant neoplasm of prostate Lipid Panel 5 Months D50.9 - Iron deficiency anemia, unspecified, E78.9 - Disorder of lipoprotein metabolism, unspecified, I73.9 - Peripheral vascular disease, unspecified, M79.89 - Other specified soft tissue disorders, R73.01 - Impaired fasting glucose, Z85.46 - Personal history of malignant neoplasm of prostate Hemoglobin A1c 5 Months D50.9 - Iron deficiency anemia, unspecified, E78.9 - Disorder of lipoprotein metabolism, unspecified, I73.9 - Peripheral vascular disease, unspecified, M79.89 - Other specified soft tissue disorders, R73.01 - Impaired fasting glucose, Z85.46 - Personal history of malignant neoplasm of prostate Ferritin 5 Months D50.9 - Iron deficiency anemia, unspecified, E78.9 - Disorder of lipoprotein metabolism, unspecified, I73.9 - Peripheral vascular disease, unspecified, M79.89 - Other specified soft tissue disorders, R73.01 - Impaired fasting glucose, Z85.46 - Personal history of malignant neoplasm of prostate
--- OUTSIDE RECORDS SUMMARY | 2024-08-21 08:32 | XMS_ITS | Patient Health Record ---
Author Organization [facility] Address [address] [place] [id number] Care Team Providers Care Harness Repairer Name Role Phone Douglas MCKOY, [facility] Primary Care Provider Naveed Herman [phone] Allergies Allergen (clinical drug ingredient) Drug/Non Drug [...] Problem Status W/U Status Risk Notes Problem 61502462 Rectal bleeding (K62.5) Active confirmed Problem 182560421 Encounter for screening for malignant neoplasm of colon (Z12.11) Active confirmed Problem 230793336 History of adenomatous polyp of colon (Z86.010) Active confirmed Problem 80144860 Calculus of gallbladder without cholecystitis without obstruction (K80.20) Active confirmed Problem 853291033075573 Preprocedural examination (Z01.818) Active confirmed Problem 84408012 Pancreatic cyst (K86.2) Active confirmed Problem Diverticulosis of colon (406697511) Diverticulosis of colon (K57.30) Active confirmed Problem 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 Billroth II operation (Z98.0) Active confirmed Plan Of Treatment Pending Test Test Name Order Date Pathology 11/05/2021 Future Test Test Name Order Date COLONOSCOPY 11/15/2017 COLONOSCOPY 08/24/2021 Insurance Providers Payer Name Payer Address Payer Phone Subscriber Number Group Number Insured Name Patient Relationship to Insured Coverage Start Date Coverage End Date [facility] [address] [place], [place] [id number] [phone] [id number] PEDRO PABLO KEYS Self - patient is the insured Medical (General) History Medical History History ICD Code Denies MO,DM,CVA,Lung disease,renal dise ase BPH Hyperlipidemia Allergies Colonoscopy in 2007 in [place]--he d escribes this as negative Diverticulitis with surgery as described below--he denies any recurrent problems in that regard Colonoscopy in 03/2018 with a small tubular adenoma, hyperplastic polyp, normal anastomosis, and internal hemorrhoids Prostate cancer diagnosed --XRT in 08/2020-10/2020--Dr. Cruz, urologist in [place] Asymptomatic gallstones seen on 01/2020 CT Pancreatic tail cyst seen on CT 01/2020. ....1.2cm in size Surgical History Surgery Date(Month/Year) Inguinal hernia repair x 2---right and l eft 1995,2002 Sigmoid colon resection--Dr. Adrian--temp orary colostomy 10/2001 Colostomy reversed 01/2002 Spermatocele
== END 2024-08-21 09:02 | disposition home or self-care (01) ==
LOC: HO.HMCC 08:17
PROVIDERS: PCP Internal Medicine; Visit Provider Internal Medicine
DX: D50.9 Iron deficiency anemia, unspecified (principal); M79.89 Other specified soft tissue disorders; I73.9 Peripheral vascular disease, unspecified; E78.9 Disorder of lipoprotein metabolism, unspecified; R73.01 Impaired fasting glucose; Z85.46 Personal history of malignant neoplasm of prostate

== ENCOUNTER → 2024-08-21 08:16 | Outpatient (BNVA) | payer MEDICARE, SELFPAY | PROVIDERS: PCP Internal Medicine; Visit Provider Internal Medicine | DX: D50.9 Iron deficiency anemia, unspecified (principal); R60.0 Localized edema; I73.9 Peripheral vascular disease, unspecified; E78.9 Disorder of lipoprotein metabolism, unspecified; R73.01 Impaired fasting glucose; Z85.46 Personal history of malignant neoplasm of prostate | CPT/HCPCS: 96127; 99212 ==

== ENCOUNTER 2024-11-22 13:24 | Outpatient (AMB) | payer MEDICARE, SELFPAY ==
--- OUTSIDE RECORDS SUMMARY | 2024-11-22 13:26 | XMS_ITS | Patient Health Record ---
Author Organization [facility] Address [address] [place] [phone] Care Team Providers Care Gas Meter Prover Name Role Phone Douglas [facility]OY, [facility] Primary Care Provider Naveed Herman [phone] Allergies Allergen (clinical drug ingredient) Drug/Non Drug [...] Problem Status W/U Status Risk Notes Problem 92308309 Rectal bleeding (K62.5) Active confirmed Problem 047230993 Encounter for screening for malignant neoplasm of colon (Z12.11) Active confirmed Problem 951879414 History of adenomatous polyp of colon (Z86.010) Active confirmed Problem 81366873 Calculus of gallbladder without cholecystitis without obstruction (K80.20) Active confirmed Problem 873136656964060 Preprocedural examination (Z01.818) Active confirmed Problem 97318579 Pancreatic cyst (K86.2) Active confirmed Problem Diverticulosis of colon (727745632) Diverticulosis of colon (K57.30) Active confirmed Problem History of Billroth II operation (Z98.0) Active confirmed Plan Of Treatment Pending Test Test Name Order Date Pathology 11/05/2021 Future Test Test Name Order Date COLONOSCOPY 11/15/2017 COLONOSCOPY 08/24/2021 Insurance Providers Payer Name Payer Address Payer Phone Subscriber Number Group Number Insured Name Patient Relationship to Insured Coverage Start Date Coverage End Date [facility] [address] [place], [place] [id number] [phone] [id number] PEDRO PABLO KEYS Self - patient is the insured Medical (General) History Medical History History ICD Code Denies ME,DM,CVA,Lung disease,renal dise ase BPH Hyperlipidemia Allergies Colonoscopy in 2007 in [place]--he d escribes this as negative Diverticulitis with surgery as described below--he denies any recurrent problems in that regard Colonoscopy in 03/2018 with a small tubular adenoma, hyperplastic polyp, normal anastomosis, and internal hemorrhoids Prostate cancer diagnosed --XRT in 08/2020-10/2020--Dr. Cruz, urologist in [place] Asymptomatic gallstones seen on 01/2020 CT Pancreatic tail cyst seen on CT 01/2020. ....1.2cm in size Surgical History Surgery Date(Month/Year) Inguinal hernia repair x 2---right and l eft 1995,2002 Sigmoid colon resection--Dr. Adrian--temp orary colostomy 10/2001 Colostomy reversed 01/2002 Spermatocele
[2024-11-22 13:35] VITALS: BP 128/68; PULSE 66; TEMP 37; O2SAT 96; BMI 27.4
--- NOTE | 2024-11-22 13:35 | AM.OFFWIN_ITS ---
Intake Vital Signs 11/22/24 13:35 Height 5 ft 8 in Weight 180 lb BMI 27.4 BP 128/68 Blood Pressure Location Lt brachial Position Sitting Pulse 66 Pulse Source Pulse Oximeter Temp 98.6 F Temp Source Oral Pulse Oximetry (%) 96 Oxygen Delivery Method Room Air Intake Visit Reasons: EP Rash on RT leg and ? pulled muscle Intake Note: presents with a red, raised rash on right thigh. Also c/o pain to hamstring after pulling weeds recently Patient Tobacco Use Status: Former Tobacco user Allergies oxycodone (From OxyContin) Allergy (Unknown, Verified 11/22/24 13:38) Hallucinations HPI HPI Comments History of Present Illness Details This is a 74-year-old male with a past medical history of BPH and hyperlipidemia presenting for evaluation of a rash on his right thigh that he first noted 1 week ago after pulling weeds. Patient states that he also strained a muscle in his right thigh 1 week ago when pulling weeds. Patient states that the rash has spread up his thigh but is not painful or itchy. Patient feels that the rash is warm to touch. He has not used any medication for treatment of the rash. Patient states when he wakes up in the morning he feels tightness in his right medial thigh which lucency up when he starts to walk. He has not taken any medication for treatment of his muscular strain. Patient denies having any fevers, chills or other lesions at other sites on his body. [facility] Medical History Lipid disorder Gall stones Elevated PSA Renal calculus, bilateral Bilateral renal cysts Pancreatic lesion Surgical History Hx of colonoscopy History of inguinal hernia repair, bilateral Family History Father Diabetes mellitus Mother No problems noted. 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[employer] Current occupational exposures/hazards: Yes Cognitive needs: No Hearing needs: No Vision needs: No Review of Systems Const All systems reviewed & are unremarkable except as noted in HPI and below Denies chills, Denies fatigue and Denies fever(s) Eyes Reports no additional complaints ENT Reports no additional complaints Card Reports no additional complaints Resp Reports no additional complaints GI Reports no additional complaints Reports no additional complaints Musc Reports muscle cramps (right medial thigh) Skin/Breast Denies dry skin, Denies pruritus, Reports new lesions, Reports erythema, Reports rash and Denies skin pain Neuro Reports no additional complaints Psych Reports no additional complaints Endo Reports no additional complaints and Denies fatigue Hair/Lymph Reports no additional complaints Aller/Immun Reports no additional complaints Physical Exam Vital Signs: Last Vital Signs Temp 98.6 F 11/22/24 13:35 Pulse 66 11/22/24 13:35 BP 128/68 11/22/24 13:35 Pulse Ox 96 11/22/24 13:35 Oxygen Delivery Method Room Air 11/22/24 13:35 BMI result Body Mass Index 27.4 Const General: cooperative, healthy appearing, comfortable, no acute distress, well developed, alert, awake and Physically active; No acute distress or ill appearing Nutritional Appearance: well nourished Orientation/consciousness: patient oriented x3 Limitations: no limitations Skin Other: There is an erythematous maculopapular eruption with irregular borders on the right anterior thigh extending from the right lateral distal thigh to the right medial inguinal region, no additional lesions are noted in the suprapubic region, buttocks or hip. Neuro General: patient oriented x3 Extrem Right lower extremity: normal to inspection, full ROM and hip/thigh Details: tenderness (right distal medial thigh; passive ROM right knee intact); no edema Psych Appearance: grossly normal Mental Status: mental status grossly normal Insight: Good insight present (Psych) Judgement: Good judgement present (Psych) Assessment & Plan Assessment & Plan (1) Contact dermatitis: Comment: Patient will be discharged home with a topical steroid to use once daily for the next 10-14 days. Code(s): L25.9 - Unspecified contact dermatitis, unspecified cause Qualifiers: Contact dermatitis type: irritant Contact dermatitis trigger: non-food plants Qualified Code(s): L24.7 - Irritant contact dermatitis due to plants, except food Plan: Betamethasone cream once daily times 10-14 days applied to right thigh. (2) Muscle strain of right thigh: Comment: Given this patient's history coupled with his examination, imaging is deferred at this time. Code(s): S76.911A - Strain of unspecified muscles, fascia and tendons at thigh level, right thigh, initial encounter Qualifiers: Encounter type: initial encounter Qualified Code(s): S76.911A - Strain of unspecified muscles, fascia and tendons at thigh level, right thigh, initial encounter Plan: Ibuprofen 600 mg q.6 to 8 hours as needed for discomfort, heating pad at 20 minute intervals as needed. Medications: New betamethasone, augmented 0.05 % 1 appl topical DAILY 50 grams 0RF Coding Level of Care Code Est Pt Level 3 (22818) Diagnoses Irritant contact dermatitis due to plants, except food L24.7 Contact dermatitis type: irritant Contact dermatitis trigger: non-food plants Muscle strain of right thigh, initial encounter S76.911A Encounter type: initial encounter Time Spent (min) 20
== END 2024-11-22 14:24 | disposition home or self-care (01) ==
PROVIDERS: PCP Internal Medicine; Visit Provider Physician Assistant
DX: L24.7 Irritant contact dermatitis due to plants, except food (principal); S76.911A Strain of unspecified muscles, fascia and tendons at thigh level, right thigh, initial encounter

== ENCOUNTER → 2024-11-22 13:24 | Outpatient (BNVA) | payer MEDICARE, SELFPAY | PROVIDERS: PCP Internal Medicine; Visit Provider Nurse Practitioner Family | DX: N40.0 Benign prostatic hyperplasia without lower urinary tract symptoms (principal); E78.5 Hyperlipidemia, unspecified; R21 Rash and other nonspecific skin eruption; L24.7 Irritant contact dermatitis due to plants, except food; S76.911A Strain of unspecified muscles, fascia and tendons at thigh level, right thigh, initial encounter; X58.XXXA Exposure to other specified factors, initial encounter; Y93.9 Activity, unspecified; Y92.9 Unspecified place or not applicable; Y99.9 Unspecified external cause status | CPT/HCPCS: 99212 ==

== ENCOUNTER 2025-02-20 08:21 | Outpatient (REF) | payer MEDICARE, SELFPAY ==
--- OUTSIDE RECORDS SUMMARY | 2025-02-20 08:41 | XMS_ITS | Clinical Summary ---
Author Organization [address] [facility] Address [address] [place] [address] Phone Care Team Providers Care Ramp Service Agent Name Role Phone Rudy Steele MD Primary Care Provider Encounters Date Type Department Care Team Description 12/31/2024 Lab Requisition [facility] - Main Lab [address] [facility] Social IQ (Social Influence Quotient) [place] [address] Tino Cruz MD Gross hematuria from Last 3 Months Surgical History Surgery Date Site/Laterality Comments BOWEL RESECTION PROCEDURE: HISTORICAL BOWEL RESECTION; COMMENT: partial colectomy OTHER SURGICAL HISTORY 06/2012 Left PROCEDURE: HISTORY OTHER; COMMENT: excision BCC, skin HERNIA REPAIR PROCEDURE: HISTORICAL HERNIA REPAIR/ING OTHER SURGICAL HISTORY Left PROCEDURE: HISTORY OTHER; COMMENT: hydrocele repair Medical History Medical History Date Comments Allergic rhinitis 01/18/2018 DX:Allergic rh initis Diverticulosis 07/18/2017 DX:Diverticulosi s Hyperlipidemia 01/18/2018 DX:Hyperlipidemi a Migraine headache 01/16/2017 DX:Migraine he adache Raised prostate specific antigen 01/18/2018 DX:Raised prostate specific antigen 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 DX :Status post partial colectomy; COMMENT: H/o diverticulitis Family History Medical History Relation Name Comments Other: diverticulitis Father COPD Mother Relation Name Status Comments Father Mother Social History Tobacco Use Types Packs/Day Years Used Date Smoking Tobacco: Former Smokeless Tobacco: Never Alcohol Use Standard Drinks/Week Comments Yes 0 (1 standard drink = 0.6 oz pur e alcohol) Sex and Gender Information Value Date Recorded Sex Assigned at Not on file Legal Sex Male 4:29 PM EST Gender Identity Not on file Sexual Orientation Not on file Obstetrics History Plan of Treatment Health Maintenance Due Date Last Done Comments Zoster Vaccines (2 of 3) 02/26/2013 01/01/2013 Cholesterol Screening (Lipid Panel) 03/30/2022 Falls Risk Assessment 03/30/2022 Hepatitis C Screening 03/30/2022 Medicare Annual Wellness Visit 03/30/2022 Social Influencers of Health Screening 03/30/2022 RSV Immunization Adult Patients (1 - 1-dose 75+ series) 07/07/2023 Depression Screening 05/01/2024 COVID-19 Vaccine (1 - 2023-2 5 season) 2024 Influenza Vaccine (#1) 2024 DTaP,Tdap,and Td Vaccines (2 - Td or Tdap) 07/13/2026 07/13/2016 Pneumococcal Vaccine: 50+ Years Completed 01/16/2017, 01/11/2016 HIB Vaccines Aged Out No longer eligi ble based on patient's age to complete this topic HPV Vaccines Aged Out No longer eligi ble based on patient's age to complete this topic Hepatitis A Vaccines Aged Out No long er eligible based on patient's age to complete this topic Hepatitis B Vaccines Aged Out No long er eligible based on patient's age to complete this topic IPV Vaccines Aged Out No longer eligi ble based on patient's age to complete this topic MMR Vaccines Aged Out No longer eligi ble based on patient's age to complete this topic Meningococcal ACWY Vaccine Aged Out N o longer eligible based on patient's age to complete this topic Meningococcal B Vaccine Aged Out No l onger eligible based on patient's age to complete this topic RSV Immunization Patients Under 20 months Aged Out No longer eligible b ased on patient's age to complete this topic Varicella Vaccines Aged Out No longer eligible based on patient's age to complete this topic Procedures Procedure Name Priority Date/Time Associated Diagnosis Comments NON-GYNECOLOGIC CYTOLOGY Routine 12/18/2024 12:00 AM EDT Gross hematuria from Last 3 Months Results * Non-gynecologic cytology (12/18/2024 12:00 AM EDT) Final Diagnosis A. Urine, Voided, ([id number]): Negative for high grade urothelial carcinoma. Acute inflammation present. Results of UroVysion fluorescence in situ hybridization (FISH) testing: Although FISH was performed, insufficient non-obscured hybridization signals are present for evaluation and interpretation. 01/17/2025 11:04 AM EDT [facility] Specimen A Adequacy Satisfactory for evaluation 01/17/2025 11:04 AM EDT [facility] Clinical Information Gross hematuria R31.0 Urine Cytology/FISH (now) 01/17/2025 11:04 AM EDT [facility] Gross Description A. Urine, Voided, ([id number]): Received one ThinPrep slide for cytology and one ThinPrep slide for UroVysion FISH 01/17/2025 11:04 AM EDT [facility] Disclaimer Unless otherwise specified, all tissue is 10% NB formalin fixed and paraffin embedded. Technical pathology services provided by [facility] at [address] [facility] [address], [place] [address] (CLIA #[id number]/Betzy Mejia MD, Construction Engineer) 01/17/2025 11:04 AM EDT [facility] Urine Urine specimen from urethra / Unknown 12/18/2024 12/31/2024 4:19 PM EDT us Tino Cruz MD LAB CYTOLOGY ORDERABLES Final Result [facility] [address] [place] [address], from Last 3 Months Insurance BLUE CROSS - [place] MEDICARE ADVANTAGE Care Teams Ramp Service Agent Relationship Specialty Start Date End Date Rudy Steele MD [address] [address] PCP - General Internal Medicine 03/10/18
--- OUTSIDE RECORDS SUMMARY | 2025-02-20 08:42 | XMS_ITS | Encounter Summary ---
Author Organization [facility] Address [id number] [place] [id number] Care Team Providers Care Front Office Spec Name Role Phone Rudy Steele MD Primary Care Provider [phone] Encounter Details Date Type Department Care Team (Late st Contact Info) Description 12/31/2024 Lab Requisition [facility] - Main Lab [address] [facility] [place] [address] Tino Cruz MD [address] [facility] [address] [place] [address] Gross hematuria Social History Tobacco Use Types Packs/Day Years Used Date Smoking Tobacco: Former Smokeless Tobacco: Never Alcohol Use Standard Drinks/Week Comments Yes 0 (1 standard drink = 0.6 oz pur e alcohol) Sex and Gender Information Value Date Recorded Sex Assigned at Not on file Legal Sex Male 4:29 PM EST Gender Identity Not on file Sexual Orientation Not on file documented as of this encounter Plan of Treatment Not on file documented as of this encounter Procedures Procedure Name Priority Date/Time Associated Diagnosis Comments NON-GYNECOLOGIC CYTOLOGY Routine 12/18/2024 12:00 AM EDT Gross hematuria documented in this encounter Results * Non-gynecologic cytology (12/18/2024 12:00 AM EDT) Final Diagnosis A. Urine, Voided, (): Negative for high grade urothelial carcinoma. Acute inflammation present. Results of UroVysion fluorescence in situ hybridization (FISH) testing: Although FISH was performed, insufficient non-obscured hybridization signals are present for evaluation and interpretation. 01/17/2025 11:04 AM EDT [facility] LAB Specimen A Adequacy Satisfactory for evaluation 01/17/2025 11:04 AM EDT [facility] Clinical Information Gross hematuria R31.0 Urine Cytology/FISH (now) 01/17/2025 11:04 AM EDT [facility] Gross Description A. Urine, Voided, ([id number]): Received one ThinPrep slide for cytology and one ThinPrep slide for UroVysion FISH 01/17/2025 11:04 AM EDT [facility] Disclaimer Unless otherwise specified, all tissue is 10% NB formalin fixed and paraffin embedded. Technical pathology services provided by [facility] at [address] [place] [address] [address], [place] [address] (CLIA #[id number]/Betzy Mejia MD, Unindentured Apprentice) 01/17/2025 11:04 AM EDT [facility] Urine Urine specimen from urethra / Unknown 12/18/2024 12/31/2024 4:19 PM EDT us Tino Cruz MD LAB CYTOLOGY ORDERABLES Final Result [facility] [address] [place] [address], documented in this encounter Visit Diagnoses Diagnosis Gross hematuria documented in this encounter Care Teams Front Office Spec Relationship Specialty Start Date End Date Rudy Steele MD [address] [phone] PCP - General Internal Medicine 03/10/18 documented as of this encounter
[2025-02-20 10:31] LABS: MANUAL DIFF FLAG NO
[2025-02-20 10:42] LABS: Hematocrit 39.2 % (42.0-52.0); Hemoglobin 13.0 g/dl (14.0-18.0); Imm Gran Abs Auto 0.01 X10*3/uL (0.00-0.03); Imm Gran Pct Auto 0.3 % (0.0-0.4); Lymphocytes Absolute Auto 0.7 X10*3/uL (1.2-4.9); Mean Corpuscular HGB Conc 33.2 g/dl (31.0-36.0); Mean Corpuscular Hemoglobin 29.7 pg (27.0-33.0); Mean Corpuscular Volume 89.7 fL (80.0-98.0); NRBC Abs Auto 0.000 X10*3/uL (0.0-0.012); NRBC Pct Auto 0.0 /100WBC (0.0-0.2); Platelet Count 183 X10*3/uL (160-400); Red Blood Count 4.37 X10*6/uL (4.60-5.80); White Blood Count 3.1 X10*3/uL (4.8-10.8)
[2025-02-20 10:58] LABS: Alanine Aminotransferase 18 U/L (0-40); Albumin Level 4.0 g/dL (3.5-5.0); Alkaline Phosphatase 74 U/L (39-117); Anion Gap 10 (12-20); Aspartate Amino Transferase 23 U/L (5-37); Blood Urea Nitrogen 27 mg/dL (9-16); Calcium 9.0 mg/dL (8.4-10.2); Carbon Dioxide 28 mmol/L (22-29); Chloride 108 mmol/L (96-108); Cholesterol 181 mg/dL (<200); Estimated Glomerular Filt Rate > 60; HDL Cholesterol 48 mg/dL (>40); Potassium 4.7 mmol/L (3.3-5.1); Sodium 141 mmol/L (135-145); Total Protein 6.2 g/dL (6.5-8.0); Triglycerides 76 mg/dL (<150)
[2025-02-20 11:16] LABS: Ferritin 222 ng/mL (20-250)
[2025-02-20 11:19] LABS: Folate 13.6 ng/mL (> or = 4.0); Vitamin B12 634 pg/mL (200-900)
== END 2025-02-20 08:22 | disposition home or self-care (01) ==
LOC: HO.HMGCLDS 08:21
PROVIDERS: PCP Internal Medicine; Visit Provider Internal Medicine
DX: R73.01 Impaired fasting glucose (principal); D50.9 Iron deficiency anemia, unspecified; M79.89 Other specified soft tissue disorders; I73.9 Peripheral vascular disease, unspecified; E78.9 Disorder of lipoprotein metabolism, unspecified; Z85.46 Personal history of malignant neoplasm of prostate
CPT/HCPCS: 36415; 80053; 80061; 82607; 82728; 82746; 83036; 85025

== ENCOUNTER 2025-03-14 09:05 | Outpatient (AMB) | payer MEDICARE, SELFPAY ==
[2025-03-14 09:07] VITALS: BP 128/86; PULSE 60; O2SAT 99; BMI 28.6
--- NOTE | 2025-03-14 09:07 | MHC.PC.OV ---
Vital Signs 03/14/25 09:07 Height 5 ft 8 in Weight 188 lb BMI 28.6 BP 128/86 Blood Pressure Location Lt brachial Position Sitting Pulse 60 Pulse Source Pulse Oximeter Pulse Oximetry (%) 99 Oxygen Delivery Method Room Air Intake Visit Reasons: PE Registered Nurse Ambulatory Required: No Accompanied by: Self / Same As Patient Allergies oxycodone (From OxyContin) Allergy (Unknown, Verified 03/14/25 09:13) Hallucinations Medication List - Last Reconciled 03/14/25 by Sanjay Cole MD atorvastatin 20 mg PO DAILY 90 days betamethasone, augmented 0.05 % 1 appl topical DAILY calcium carbonate (Antacid (calcium carbonate)) 200 mg PO DAILY cetirizine (Zyrtec) 5 mg PO DAILY PRN coenzyme Q10 (Ultra CoQ10) 75 mg PO DAILY cranberry extract 250 mg PO DAILY fluticasone furoate 50 mcg/actuation inhalation glucosamine-chondroitin 500-400 mg 1 cap PO DAILY magnesium 250 mg PO DAILY gnopasxc-afo-ohceb-vit K-lycop 400-20-370 mcg (Men's 50 Plus Multivitamin) 1 tab PO DAILY tamsulosin 0.4 mg PO DAILY 90 days Tobacco use date assessed: 08/21/24 Dental Screening Dental Screen Date: 08/21/24 HPI PE HPI Details History of Present Illness The patient is a 74-year-old male presenting for a physical examination and review of recent lab results. Microcytic Anemia: - The patient has a history of chronic microcytic anemia, which is considered an anemia of chronic illness. - His hemoglobin is stable at 13.0 g/dL. - Iron studies showed a ferritin of 222 ng/mL. - Vitamin B12 was 634 pg/mL and folate was 13.6 ng/mL. Hyperlipidemia: - The patient has a history of a lipid disorder and is taking atorvastatin 20 mg. - Recent labs showed an LDL of 118 mg/dL. History of Prostatic Malignancy and BPH: - He has a stable history of prostatic malignancy. - He manages symptoms with tamsulosin. - He follows up with his urologist, Dr. Cruz, and the last visit was about a month and a half ago. Chronic Allergic Rhinitis and Asthma: - The patient has a history of chronic allergies and asthma. - He takes Zyrtec for allergies and uses a fluticasone 50 mcg inhaler. - He reports waking up with nasal congestion, which resolves after using his inhaler. Preventative Care: - The patient's last colonoscopy was three years ago, in 2021, performed by Dr. Arce. next in 2026 - He has not had a tetanus shot in about 15 years. Medications: - Atorvastatin 20 mg for hyperlipidemia - Zyrtec for allergies - Tamsulosin for benign prostatic hypertrophy - Fluticasone 50 mcg inhaler for asthma and nasal congestion Diagnostic Results: - Labs (January): - Hemoglobin: 13.0 g/dL - Electrolytes: Stable - Kidney function: Intact - Fasting glucose: 95 mg/dL - Liver enzymes: Stable - Ferritin: 222 ng/mL - LDL: 118 mg/dL - Vitamin B12: 634 pg/mL - Folate: 13.6 ng/mL - Procedures: - Colonoscopy: Last performed three years ago (2021). Problem List - Hypertension - Microcytic anemia - Chronic allergic rhinitis - Impaired fasting glucose - Peripheral vascular disease, stable - History of prostatic malignancy, stable - Benign prostatic hypertrophy - Asthma - Hyperlipidemia Plan - Mild anemia of chronic disease is stable with hemoglobin of 13.0 g/dL; no intervention is required at this time. - Administered tetanus and pneumonia (Prevnar 20) vaccines in-office today. - Advised the patient to obtain the shingles vaccine from a pharmacy. - Discussed RSV and COVID vaccines; the patient will decide whether to receive them. - Patient will continue current medications for chronic conditions, including hyperlipidemia, allergies, asthma, and BPH. - An order will be placed for repeat blood tests to be completed before the next visit. - The patient will schedule a follow-up appointment in six months. Review of Systems - General: No fever no chills - Neurological: No headaches no dizziness - Ear nose throat: No sore throat no hearing difficulty no ear pain - Cardiovascular: No syncope, no chest pain, no palpitations - Gastrointestinal: No nausea vomiting or diarrhea - Endocrine: No polyuria polydipsia no heat intolerance - Genitourinary: No dysuria , no blood in urine Physical Exam - General: No acute distress - HEENT: No acute findings - Neck: Supple - Respiratory system: Able to talk in full sentences, no audible wheeze - Cardiovascular: S1-S2 regular in rate and rhythm - Gastrointestinal: No pain - Extremities: No new findings - CHIP CRUSHER OPERATOR: Alert awake oriented x3 motor intact - Skin: Normal turgor [facility] Medical History Lipid disorder Gall stones Elevated PSA Renal calculus, bilateral Bilateral renal cysts Pancreatic lesion Surgical History Hx of colonoscopy History of inguinal hernia repair, bilateral Family History Father Diabetes mellitus Mother No problems noted. Social History Household Members: Spouse Housing: House Alcohol intake: current Alcohol intake frequency: a few times a month Alcohol type: wine Patient Tobacco Use Status: Former Tobacco user Tobacco use type: Cigarette Years Smoked: 11 years e-Cigarette/Vaping Use: Never Used service: No Current occupational status: employed Current occupation: [employer] Current occupational exposures/hazards: Yes Cognitive needs: No Hearing needs: No Vision needs: No Questionnaire Thrive Questionnaire Date Thrive assessed: 08/14/24 I am a: Patient What is your living situation today?: I have a steady place to live Within the past 12 months, did the food you bought not last and you didn't have the money to get more?: Never true Within the past 12 months, did you worry whether your food would run out before you got money to buy more?: Never true Do you have trouble paying for medicines?: No Do you have trouble getting transportation to medical appointments?: No Do you have trouble paying your heating and electricity bill?: No Do you have trouble taking care of your child, family member or friend?: No Do you have trouble with day-to-day activities such as bathing, preparing meals, shopping, managing finances, etc.?: No Are you currently unemployed and looking for a job?: No Are you interested in more education?: No Please select the resources that you would like help with: None Currently or been in a relationship where the following occur: No concerns reported THRIVE Score: 0 KARINA-7 AMB Questionnaire KARINA-7 Date KARINA - 7 assessed: 08/21/24 Feeling nervous, anxious, or on edge: 0 = Not at all Not being able to stop or control worryin = Not at all Worrying too much about different things: 0 = Not at all Trouble relaxin = Not at all Being so restless that it is hard to sit still: 0 = Not at all Becoming easily annoyed or irritable: 0 = Not at all Feeling afraid as if something awful might happen: 0 = Not at all Total KARINA-7 score (0-4 normal; 5-9 mild; 10-14 moderate; 15-21 severe): 0 Source: Developed by Drs. Naveed Pitt, Temitope Gordillo, Hma Campos and colleagues, with an educational lisa from [employer]. Physical exam (Primary Care) Vital Signs: Last Vital Signs Pulse 60 03/14/25 09:07 BP 128/86 03/14/25 09:07 Pulse Ox 99 03/14/25 09:07 Oxygen Delivery Method Room Air 03/14/25 09:07 BMI result Body Mass Index 28.6 Tobacco/Smoking Status: Tobacco use Status Tobacco use date assessed 08/21/24 03/14/25 09:07 Patient Tobacco Use Status Former Tobacco user 03/14/25 09:07 Tobacco use type Cigarette 03/14/25 09:07 e-Cigarette/Vaping Use Never Used 03/14/25 09:07 Thrive Assessment: Date of Thrive Assessment Date Thrive assessed 08/14/24 03/14/25 09:07 Currently or been in a relationship where the following occur: No concerns reported Immunizations pneumoc 20-geovanna conj-dip cr(PF) 0.5 mL IM syringe Performing Provider: Sanjay Cole MD Performing Location[place] [facility] [place] [facility] Administered by: Florencia Pratt CMA on 03/14/25 09:45 Dose Route Admin Location Dispensed Lot Number Expiration Date [facility] Library Aide 0.5 mL IM Left Deltoid 0.5 mL [id number] 01/28/26 5913-6673-44 [employer] Total Dispensed Waste 0.5 mL 0 % VIS Given Date VIS Provided VIS Publication Date 03/14/25 Single Vaccine 24 Eligibility Eligibility Date Funding Source Not [facility] Eligible 03/14/25 Private Boostrix Tdap 2.5 Lf unit-8 mcg-5 Lf/0.5 mL intramuscular syringe Performing Provider: Sanjay Cole MD Performing Location: [facility] [facility] Administered by: Florencia Pratt CMA on 03/14/25 09:51 Dose Route Admin Location Dispensed Lot Number Expiration Date [employer] Library Aide 0.5 mL IM Right Deltoid 0.5 mL [id number] 10/11/27 81700-368-79 [employer] Total Dispensed Waste 0.5 mL 0 % VIS Given Date VIS Provided VIS Publication Date 03/14/25 Single Vaccine 20 Eligibility Eligibility Date Funding Source Not [facility] Eligible 03/14/25 Private Coding Level of Care Code Est Pt Level 3 (14242) Est Pt Prev Care >65y(09986) Diagnoses Encounter for general adult medical examination with abnormal findings Z00.01 Microcytic anemia D50.9 Lipid disorder E78.9 Impaired fasting blood sugar R73.01 Immunizations incomplete Z28.39 Elevated PSA R97.20 Environmental allergies Z91.09 Hx of prostatic malignancy Z85.46 Assessment & Plan Assessment & Plan (1) Encounter for general adult medical examination with abnormal findings: Code(s): Z00.01 - Encounter for general adult medical examination with abnormal findings Category: Medical (2) Microcytic anemia: Code(s): D50.9 - Iron deficiency anemia, unspecified Category: Medical (3) Lipid disorder: Code(s): E78.9 - Disorder of lipoprotein metabolism, unspecified Category: Medical (4) Impaired fasting blood sugar: Code(s): R73.01 - Impaired fasting glucose Category: Medical (5) Immunizations incomplete: Code(s): Z28.39 - Other underimmunization status Category: Medical (6) Elevated PSA: Code(s): R97.20 - Elevated prostate specific antigen [PSA] Category: Medical (7) Environmental allergies: Code(s): Z91.09 - Other allergy status, other than to drugs and biological substances Category: Medical (8) Hx of prostatic malignancy: Code(s): Z85.46 - Personal history of malignant neoplasm of prostate Category: Medical Plan Microcytic Anemia: - The patient has a history of chronic microcytic anemia, which is considered an anemia of chronic illness. - His hemoglobin is stable at 13.0 g/dL. - Iron studies showed a ferritin of 222 ng/mL. - Vitamin B12 was 634 pg/mL and folate was 13.6 ng/mL. Hyperlipidemia: - The patient has a history of a lipid disorder and is taking atorvastatin 20 mg. - Recent labs showed an LDL of 118 mg/dL. History of Prostatic Malignancy and BPH: - He has a stable history of prostatic malignancy. - He manages symptoms with tamsulosin. - He follows up with his urologist, Dr. Cruz, and the last visit was about a month and a half ago. Chronic Allergic Rhinitis and Asthma: - The patient has a history of chronic allergies and asthma. - He takes Zyrtec for allergies and uses a fluticasone 50 mcg inhaler. - He reports waking up with nasal congestion, which resolves after using his inhaler. Preventative Care: - The patient's last colonoscopy was three years ago, in 2021, performed by Dr. Arce. next in 2026 - He has not had a tetanus shot in about 15 years. Diagnostic Results: - Labs (January): - Hemoglobin: 13.0 g/dL - Electrolytes: Stable - Kidney function: Intact - Fasting glucose: 95 mg/dL - Liver enzymes: Stable - Ferritin: 222 ng/mL - LDL: 118 mg/dL - Vitamin B12: 634 pg/mL - Folate: 13.6 ng/mL - Procedures: - Colonoscopy: Last performed three years ago (2021). Problem List - Hypertension - Microcytic anemia - Chronic allergic rhinitis - Impaired fasting glucose - Peripheral vascular disease, stable - History of prostatic malignancy, stable - Benign prostatic hypertrophy - Asthma - Hyperlipidemia Plan - Mild anemia of chronic disease is stable with hemoglobin of 13.0 g/dL; no intervention is required at this time. - Administered tetanus and pneumonia (Prevnar 20) vaccines in-office today. - Advised the patient to obtain the shingles vaccine from a pharmacy. - Discussed RSV and COVID vaccines; the patient will decide whether to receive them. - Patient will continue current medications for chronic conditions, including hyperlipidemia, allergies, asthma, and BPH. - An order will be placed for repeat blood tests to be completed before the next visit. - The patient will schedule a follow-up appointment in six months. Orders: Orders Ferritin Today D50.9 - Iron deficiency anemia, unspecified, E78.9 - Disorder of lipoprotein metabolism, unspecified, I73.9 - Peripheral vascular disease, unspecified, R73.01 - Impaired fasting glucose, R97.20 - Elevated prostate specific antigen [PSA], Z85.46 - Personal history of malignant neoplasm of prostate, Z91.09 - Other allergy status, other than to drugs and biological substances Complete Blood Count Auto Diff Today D50.9 - Iron deficiency anemia, unspecified, E78.9 - Disorder of lipoprotein metabolism, unspecified, I73.9 - Peripheral vascular disease, unspecified, R73.01 - Impaired fasting glucose, R97.20 - Elevated prostate specific antigen [PSA], Z85.46 - Personal history of malignant neoplasm of prostate, Z91.09 - Other allergy status, other than to drugs and biological substances Comprehensive Met. Panel Today D50.9 - Iron deficiency anemia, unspecified, E78.9 - Disorder of lipoprotein metabolism, unspecified, I73.9 - Peripheral vascular disease, unspecified, R73.01 - Impaired fasting glucose, R97.20 - Elevated prostate specific antigen [PSA], Z85.46 - Personal history of malignant neoplasm of prostate, Z91.09 - Other allergy status, other than to drugs and biological substances LDL Cholesterol Direct Today D50.9 - Iron deficiency anemia, unspecified, E78.9 - Disorder of lipoprotein metabolism, unspecified, I73.9 - Peripheral vascular disease, unspecified, R73.01 - Impaired fasting glucose, R97.20 - Elevated prostate specific antigen [PSA], Z85.46 - Personal history of malignant neoplasm of prostate, Z91.09 - Other allergy status, other than to drugs and biological substances TDaP Immunization Today Z23 - Encounter for immunization Vitamin B12 Today D50.9 - Iron deficiency anemia, unspecified, E78.9 - Disorder of lipoprotein metabolism, unspecified, I73.9 - Peripheral vascular disease, unspecified, R73.01 - Impaired fasting glucose, R97.20 - Elevated prostate specific antigen [PSA], Z85.46 - Personal history of malignant neoplasm of prostate, Z91.09 - Other allergy status, other than to drugs and biological substances Prostate Specific Antigen Today D50.9 - Iron deficiency anemia, unspecified, E78.9 - Disorder of lipoprotein metabolism, unspecified, I73.9 - Peripheral vascular disease, unspecified, R73.01 - Impaired fasting glucose, R97.20 - Elevated prostate specific antigen [PSA], Z85.46 - Personal history of malignant neoplasm of prostate, Z91.09 - Other allergy status, other than to drugs and biological substances Pneumococcal 20 Immunization Today Z23 - Encounter for immunization
--- OUTSIDE RECORDS SUMMARY | 2025-03-14 09:40 | XMS_ITS | Encounter Summary ---
Author Organization [facility] Address [address] [place] [id number] Care Team Providers Care Hydro Generation Manager Name Role Phone Rudy Steele MD Primary Care Provider [phone] Encounter Details Date Type Department Care Team (Late st Contact Info) Description 12/31/[address] [facility] - Main Lab [address] [facility] [place] [address] Tino Cruz MD [address] [facility] [address] [place] [address] Gross hematuria Social History Tobacco [...] evaluation and interpretation. 01/17/2025 11:04 AM EDT [facility] Specimen A Adequacy Satisfactory for evaluation 01/17/2025 11:04 AM EDT [facility] Clinical Information Gross hematuria R31.0 Urine Cytology/FISH (now) 01/17/2025 11:04 AM EDT [facility] Gross Description A. Urine, Voided, ([id number]): Received one ThinPrep slide for cytology and one ThinPrep slide for UroVysion FISH 01/17/2025 11:04 AM EDT [facility] Disclaimer Unless otherwise specified, all tissue is 10% NB formalin fixed and paraffin embedded. Technical pathology services provided by [facility] at [address] [place] [address] [address], [place] [address] (CLIA #[id number]/Betzy Mejia MD, Prick Stitcher) 01/17/2025 11:04 AM EDT [facility] Urine Urine specimen from urethra / Unknown 12/18/2024 12/31/2024 4:19 PM EDT us Tino Cruz MD LAB CYTOLOGY ORDERABLES Final Result [facility] [address] [place] [address], documented in this encounter Visit Diagnoses Diagnosis Gross hematuria documented in this encounter Care Teams Hydro Generation Manager Relationship Specialty Start Date End Date Rudy Steele MD [address] [id number] PCP - General Internal Medicine 03/10/18 documented as of this encounter
--- OUTSIDE RECORDS SUMMARY | 2025-03-14 09:40 | XMS_ITS | Patient Health Record ---
Author Organization [facility] Address [address] [place] [id number] Care Team Providers Care C D Area Supervisor Name Role Phone Douglas MCKOY, [facility] Primary Care Provider Naveed Herman [phone] Allergies Allergen (clinical drug ingredient) Drug/Non Drug [...] Problem Status W/U Status Risk Notes Problem Rectal bleeding (90617005) Rectal bleeding (K62.5) Active confirmed Problem Screening for malignant neoplasm of colon (048333519) Encounter for screening for malignant neoplasm of colon (Z12.11) Active confirmed Problem History of adenomatous polyp of colon (570665446) History of adenomatous polyp of colon (Z86.010) Active confirmed Problem Cholelithiasis without obstruction (20232385) Calculus of gallbladder without cholecystitis without obstruction (K80.20) Active confirmed Problem Preprocedural examination (672859977603060) Preprocedural examination (Z01.818) Active confirmed Problem Pancreatic cyst (84368261) Pancreatic cyst (K86.2) Active confirmed Problem Diverticulosis of colon (308304164) Diverticulosis of colon (K57.30) Active confirmed Problem 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) Active confirmed Plan Of Treatment Pending Test Test Name Order Date Pathology 11/05/2021 Future Test Test Name Order Date COLONOSCOPY 11/15/2017 COLONOSCOPY 08/24/2021 Insurance Providers Payer Name Payer Address Payer Phone Subscriber Number Group Number Insured Name Patient Relationship to Insured Coverage Start Date Coverage End Date [facility] [address] [place], [place] [id number] [phone] [id number] PEDRO PABLO KEYS Self - patient is the insured Medical (General) History Medical History History ICD Code Denies [place],DM,CVA,Lung disease,renal dise ase BPH Hyperlipidemia Allergies Colonoscopy in 2007 in [place] [employer]--he d escribes this as negative Diverticulitis with surgery as described below--he denies any recurrent problems in that regard Colonoscopy in 03/2018 with a small tubular adenoma, hyperplastic polyp, normal anastomosis, and internal hemorrhoids Prostate cancer diagnosed --XRT in 08/2020-10/2020--Dr. Cruz, urologist in [place] Asymptomatic gallstones seen on 01/2020 CT Pancreatic tail cyst seen on CT 01/2020. ....1.2cm in size Surgical History Surgery Date(Month/Year) Inguinal hernia repair x 2---right and l eft 1995,2002 Sigmoid colon resection--Dr. Adrian--temp orary colostomy 10/2001 Colostomy reversed 01/2002 Spermatocele
--- OUTSIDE RECORDS SUMMARY | 2025-03-14 09:40 | XMS_ITS | Clinical Summary ---
Author Organization [address] [facility] Address [address] [place] [address] Phone Care Team Providers Care Professor Of Chemistry Name Role Phone Rudy Steele MD Primary Care Provider [phone] Encounters Date Type Department Care Team Description 12/31/2024 Lab Requisition [facility] - Main Lab [address] [facility] [place] [address] Tino Cruz MD Gross hematuria [...] Depression Screening 05/01/2024 COVID-19 Vaccine (1 - 2024-2 6 season) 2024 Influenza Vaccine (#1) 2024 DTaP,Tdap,and [...] AM EDT) Final Diagnosis A. Urine, Voided, ([id number]): Negative for high grade urothelial carcinoma. Acute inflammation present. Results of UroVysion fluorescence in situ hybridization (FISH) testing: Although FISH was performed, insufficient non-obscured hybridization signals are present for evaluation and interpretation. 01/17/2025 11:04 AM EDT [facility] Specimen A Adequacy Satisfactory for evaluation 01/17/2025 11:04 AM EDT [facility] Clinical Information Gross hematuria R31.0 Urine Cytology/FISH (now) 01/17/2025 11:04 AM EDT [facility] Gross Description A. Urine, Voided, ([id number]): Received one ThinPrep slide for cytology and one ThinPrep slide for UroVysion FISH 01/17/2025 11:04 AM EDT [facility] Disclaimer Unless otherwise specified, all tissue is 10% NB formalin fixed and paraffin embedded. Technical pathology services provided by [facility] at [address] [facility] [address], [place] [address] (CLIA #[id number]/Betzy Mejia MD, Director Of Student Financial Services) 01/17/2025 11:04 AM EDT [facility] Urine Urine specimen from urethra / Unknown 12/18/2024 12/31/2024 4:19 PM EDT us Tino Cruz MD LAB CYTOLOGY ORDERABLES Final Result [facility] [address] [place] [address], from Last 3 Months Insurance [employer] - [place] MEDICARE ADVANTAGE Care Teams Professor Of Chemistry Relationship Specialty Start Date End Date Rudy Steele MD [address] [address] PCP - General Internal Medicine 03/10/18
== END 2025-03-14 09:37 | disposition home or self-care (01) ==
LOC: HO.HMCC 09:06
PROVIDERS: PCP Internal Medicine; Visit Provider Internal Medicine
DX: Z00.01 Encounter for general adult medical examination with abnormal findings (principal); D50.9 Iron deficiency anemia, unspecified; E78.9 Disorder of lipoprotein metabolism, unspecified; R73.01 Impaired fasting glucose; Z28.39 Other underimmunization status; R97.20 Elevated prostate specific antigen [PSA]; Z91.09 Other allergy status, other than to drugs and biological substances; Z85.46 Personal history of malignant neoplasm of prostate; Z23 Encounter for immunization

== ENCOUNTER → 2025-03-14 09:05 | Outpatient (BNVA) | payer MEDICARE, SELFPAY | PROVIDERS: PCP Internal Medicine; Visit Provider Internal Medicine | DX: Z00.01 Encounter for general adult medical examination with abnormal findings (principal); D64.9 Anemia, unspecified; E78.5 Hyperlipidemia, unspecified; J45.909 Unspecified asthma, uncomplicated; D50.9 Iron deficiency anemia, unspecified; E78.9 Disorder of lipoprotein metabolism, unspecified; R73.01 Impaired fasting glucose; R97.20 Elevated prostate specific antigen [PSA]; Z23 Encounter for immunization; Z91.09 Other allergy status, other than to drugs and biological substances; Z85.46 Personal history of malignant neoplasm of prostate | CPT/HCPCS: 90471; 90472; 90677; 90715; 99397 ==